=== PATIENT | female | born 1995 | race Two or more races ===

== ENCOUNTER 2021-01-06 11:06 | Emergency (ER) | payer OTHER, SELFPAY ==
--- NOTE | ~2021-01-06 | XR_ITS ---
EXAMINATION: XR CHEST CLINICAL INFORMATION: Chest pain COMPARISON: None TECHNIQUE: 2 views of the chest were obtained. FINDINGS: No significant abnormality is noted involving the heart, lungs, mediastinum, bony thorax or soft tissues. XR/XR chest 2V IMPRESSION: Unremarkable chest examination.
[2021-01-06 11:44] VITALS: BP 118/70; PULSE 80; RESP 18; TEMP 36.9; O2SAT 100
[2021-01-06 12:19] VITALS: BP 118/70; PULSE 80; RESP 18; TEMP 36.9; O2SAT 100; BMI 21.2
--- NOTE | 2021-01-06 12:25 | ED_ITS ---
HPI - General Adult General Chief complaint: General Medical Stated complaint: LUNG AND DENTAL PAIN Time Seen by Provider: 01/06/21 12:25 Source: patient Mode of arrival: ambulatory Limitations: language barrier History of Present Illness HPI narrative: 25 y/o female presenting with 3 days of middle right sided back pain that is worse with deep inspiration and movement from side to side. She denies injury or heavy lifting. She denies fever, chills, cough, SOB, abd pain, N/V/D, urinary symptoms. No COVID-19 exposure or symptoms. She also reports on/off right lower tooth pain for the last 1 month. She broke a tooth a long time ago and has not follow up with her dentist. She denies facial swelling, difficulty swallowing, opening her mouth or eating. She has not taken any medications for the pain. MD complaint: back pain and dental pain Onset (ago): day(s) (3) Location: mouth and back Radiation: non-radiation Severity: mild Severity scale (1-10): 4 Quality: aching and sharp Pain Consistency: intermittent Relieving factors: none Exacerbating factors: movement Associated symptoms: denies other symptoms Treatments prior to arrival: none Related Data Previous Rx's Medication Instructions Recorded cyclobenzaprine 10 mg PO TID PRN #8 tab 01/06/21 ibuprofen 600 mg PO Q8H PRN #20 tab 01/06/21 lidocaine [Lidoderm] 1 patch TOPICAL DAILY #15 ea 01/06/21 Allergies Allergy/AdvReac Type Severity Reaction Status Date / Time No Known Allergies Allergy Verified 01/06/21 12:21 [No Known Allergies*] Review of Systems Review of Systems: Constitutional: No Fever, No Chills ENT/Mouth: No sore throat, No Rhinorrhea, No Swallowing Difficulty, +dental pain Cardiovascular: No Chest Pain, No SOB, No Orthopnea, No Edema Respiratory: No Cough, No Sputum, No Wheezing, No dyspnea Gastrointestinal: No Nausea, No Vomiting, No Diarrhea, No abdominal Pain Genitourinary: No Dysuria, No Urinary Frequency, No Hematuria Musculoskeletal: No joint pain, + Myalgias (right middle back) Skin: No Skin Lesions, No rash Neuro: No Weakness, No Numbness, No Dizziness, No Headache Heme/Lymph: No Bruising PMFSH Past Medical History Attestation statement: The following information was validated with the patient. Medical History No known health problems Social History Social History Advance Directives: Yes Advance Directives Information Provided: Yes Advance Directives on File: No Physical Exam Vital Signs: Vital Signs: Last Vital Signs Temp 98.5 F 01/06/21 12:19 Pulse 80 01/06/21 12:19 Resp 18 01/06/21 12:19 BP 118/70 01/06/21 12:19 Pulse Ox 100 01/06/21 12:19 Body Mass Index 21.2 Appearance: Alert. Oriented X3. No acute distress. HEENT: normal inspection externally, no facial swelling, trachea midline, neck supple without LAD, right posterior molar with large crack and missing piece, no gingival erythema, edema, fluctuance. dental decay noted CVS: Normal heart rate and rhythm. Pulses normal. Respiratory: No respiratory distress. Lungs CTAB, no wheezes or rhonchi. Skin: Skin warm and dry. Normal skin color. Normal skin turgor. No rashes. Back: medial to right scapula there is soft tissue tenderness and palpable musc le spasm. no CVA tenderness Extremities: atraumtaic, no edema Neuro: Oriented X 3. No motor deficit. No sensory deficit. Course Course Course Narrative: 25 y/o female presenting with back pain and dental pain. Back pain likely muscular given exam findings of spasm. No sign/symptoms of COVID-19. Lungs are clear. Will get CXR to r/o PNA & PTX. Dental exam is consistent with broken tooth and decay but no active infection. Will prescribe NSAID for symptomatic relief, she agreed to call her dentist today for further evaluation. Reevaluation(s) Reevaluation #1: CXR negative. Will treat for muscle spasm/pain. Patient has been counseled. Stable for discharge. Critical Care Time Critical Care Time Critical Care Time: No Discharge Plan Discharge Clinical Impression: Acute right-sided thoracic back pain, Toothache Patient Disposition: Home, Self-Care Instructions: Toothache (ED), Back Pain (ED) Additional Instructions: Your x-ray today was normal. It is likely that your back pain is due to muscle spasm. No bending, lifting or twisting. Use ice several times per day for 20 minutes at a time for the next 48 hours and then change to heat. Take medications as prescribed to help with pain and discomfort. Follow up with your Primary Care Doctor this week. Follow up with your dentist as soon as possible. The prescribed medication for your back will help your tooth pain. If your pain worsens, if you develop new numbness, tingling, weakness, loss of function or incontinence call 911 or come back to the ER right away for evaluation. Prescriptions: New ibuprofen 600 mg tablet 600 mg PO Q8H PRN (Reason: pain) Qty: 20 RF: 0 lidocaine [Lidoderm] 5 % adhesive patch,medicated 1 patch topical DAILY Qty: 15 RF: 0 cyclobenzaprine 10 mg tablet 10 mg PO TID PRN (Reason: muscle spasm) Qty: 8 RF: 0
--- NOTE | 2021-01-06 12:31 | ED.GENADULT ---
HPI - General Adult General Chief complaint: General Medical Stated complaint: LUNG AND DENTAL PAIN Time Seen by Provider: 01/06/21 12:25 Source: patient Mode of arrival: ambulatory Limitations: language barrier History of Present Illness HPI narrative: 25 yo female presenting with 3 days of middle right back pain when she takes a deep breath and moves side to side. She denies injury. No heavy lifting recently. She denies SOB, cough, fever, chills, myalgias, N/V/D. No known exposure to COVID-19. Separately patient also reports right lower dental pain ongoing for the last 1 month. She has a broken tooth that has pain on/off. She has not called her dentist for evaluation. She denies facial swelling, difficulty opening her jaw or eating. MD complaint: back pain & dental pain Onset (ago): day(s) (3) Location: mouth and back Radiation: non-radiation Severity: mild Severity scale (1-10): 4 Quality: aching and sharp Pain Consistency: intermittent Relieving factors: none Exacerbating factors: movement Associated symptoms: denies other symptoms Treatments prior to arrival: none Related Data Previous Rx's Medication Instructions Recorded cyclobenzaprine 10 mg PO TID PRN #8 tab 01/06/21 ibuprofen 600 mg PO Q8H PRN #20 tab 01/06/21 lidocaine [Lidoderm] 1 patch TOPICAL DAILY #15 ea 01/06/21 Allergies Allergy/AdvReac Type Severity Reaction Status Date / Time No Known Allergies Allergy Verified 01/06/21 12:21 [No Known Allergies*] Review of Systems Review of Systems: Constitutional: No Fever, No Chills ENT/Mouth: No sore throat, No Rhinorrhea, No Swallowing Difficulty, +dental pain Cardiovascular: No Chest Pain, No SOB, No Orthopnea, No Edema Respiratory: No Cough, No Sputum, No Wheezing, No dyspnea Gastrointestinal: No Nausea, No Vomiting, No Diarrhea, No abdominal Pain Genitourinary: No Dysuria, No Urinary Frequency, No Hematuria Musculoskeletal: No joint pain, + Myalgias (middle right back) Neuro: No Weakness, No Numbness, No Dizziness, No Headache Heme/Lymph: No Bruising PMFSH Past Medical History Attestation statement: The following information was validated with the patient. Medical History No known health problems Social History Social History Advance Directives: Yes Advance Directives Information Provided: Yes Advance Directives on File: No Physical Exam Vital Signs: Vital Signs: Last Vital Signs Temp 98.5 F 01/06/21 12:19 Pulse 80 01/06/21 12:19 Resp 18 01/06/21 12:19 BP 118/70 01/06/21 12:19 Pulse Ox 100 01/06/21 12:19 Body Mass Index 21.2 Appearance: Alert. Oriented X3. No acute distress. HEENT: normal inspection externally, no facial swelling. trachea midline, neck supple. right lower posterior molar is cracked with large piece missing, previous filling exposed. no gingival erythema, edema, bleeding or fluctance. dental decay noted. CVS: Normal heart rate and rhythm. Pulses normal. Respiratory: No respiratory distress. Lungs CTAB, no wheezes or rhonchi. Skin: Skin warm and dry. Normal skin color. Normal skin turgor. No rashes. Back: soft tissue tenderness medial to right scapula with palpable muscle spasm. Extremities: atraumatic, no edema Neuro: Oriented X 3. No motor deficit. No sensory deficit. Course Course Course Narrative: 25 y/o healthy female presenting with back pain and dental pain. Back pain seems to be muscular in nature with exam findings consistent with spasm. No SOB, cough, chest pain. No sign/symptoms of COVID-19. Will get CXR to r/o underlying PNA or PTX. Dental pain is x1 month without signs of abscess. Will give NSAID and brief course of narcotic for severe pain - discussed the importance of following up with her dentist and she agrees to call later today. Discharge Plan Discharge Clinical Impression: Acute right-sided thoracic back pain, Toothache Patient Disposition: Home, Self-Care Instructions: Toothache (ED), Back Pain (ED) Additional Instructions: Your x-ray today was normal. It is likely that your back pain is due to muscle spasm. No bending, lifting or twisting. Use ice several times per day for 20 minutes at a time for the next 48 hours and then change to heat. Take medications as prescribed to help with pain and discomfort. Follow up with your Primary Care Doctor this week. Follow up with your dentist as soon as possible. The prescribed medication for your back will help your tooth pain. If your pain worsens, if you develop new numbness, tingling, weakness, loss of function or incontinence call 911 or come back to the ER right away for evaluation. Prescriptions: New ibuprofen 600 mg tablet 600 mg PO Q8H PRN (Reason: pain) Qty: 20 RF: 0 lidocaine [Lidoderm] 5 % adhesive patch,medicated 1 patch topical DAILY Qty: 15 RF: 0 cyclobenzaprine 10 mg tablet 10 mg PO TID PRN (Reason: muscle spasm) Qty: 8 RF: 0 Interventions: ED Discharge Assessment Last Done: 01/06/21 13:09 Discharge Date/Time: 01/06/21 13:10
== END 2021-01-06 13:10 | disposition home or self-care (01) ==
PROVIDERS: Emergency Provider Emergency Medicine Emergency Medical Services
DX: M54.6 Pain in thoracic spine (principal); K08.89 Other specified disorders of teeth and supporting structures
CPT/HCPCS: 71046; 99283

== ENCOUNTER 2021-03-09 10:23 | Emergency (ER) | payer OTHER, SELFPAY ==
[2021-03-09 10:36] VITALS: BP 102/56; PULSE 83; RESP 18; TEMP 37.1; O2SAT 99; BMI 22.0
[2021-03-09 11:22] LABS: Glucose Urine UA NEG (NEG); Leukocyte Esterase Urine 1+ (NEG); Nitrite Urine NEG (NEG); UACC Culture Trigger YES; Urine Blood TRACE (NEG); Urine Ketones NEG (NEG); Urine Protein 1+ MG/DL (NEG-TRACE)
[2021-03-09 11:24] LABS: Appearance Urine HAZY; Color Urine YELLOW
[2021-03-09 11:35] LABS: Bacteria Urine 1+ /LPF; Mucus Urine 1+ /LPF; RBC Urine 0-2 /HPF (0); Squamous Epithelial Cell Urine TRACE /LPF
--- NOTE | 2021-03-09 11:59 | ED_ITS ---
HPI - General Adult General Chief complaint: Abdominal Pain Stated complaint: abd pain Time Seen by Provider: 03/09/21 11:45 Source: patient and family Mode of arrival: ambulatory Limitations: language barrier History of Present Illness HPI narrative: 25 y/o female with history of tubal ligation 6 years ago presents to the ED with 5 days of dysuria and lower abdominal discomfort. She states she has increased frequency as well. She has a habit of holding her urination at work. She has had a UTI in the past and states this feels similar. She denies vaginal discharge, fever, N/V/D. She had her menses 3 days ago for 2 days and then it stopped. She denies chance of given her tubal ligation history. complaint: dysuria Onset (ago): day(s) (5) Location: abdomen, pelvis and genitals Radiation: non-radiation Severity: moderate Quality: burning Pain Consistency: intermittent Relieving factors: none Exacerbating factors: other (urination) Associated symptoms: denies other symptoms Treatments prior to arrival: none Related Data Previous Rx's Medication Instructions Recorded cyclobenzaprine 10 mg PO TID PRN #8 tab 01/06/21 ibuprofen 600 mg PO Q8H PRN #20 tab 01/06/21 lidocaine [Lidoderm] 1 patch TOPICAL DAILY #15 ea 01/06/21 cefuroxime axetil 250 mg PO BID 7 Days #14 tab 03/09/21 Allergies Allergy/AdvReac Type Severity Reaction Status Date / Time No Known Allergies Allergy Verified 03/09/21 10:36 [No Known Allergies*] Review of Systems Review of Systems: Constitutional: No Fever, No Chills Gastrointestinal: No Nausea, No Vomiting, No Diarrhea, + abdominal Pain Genitourinary: + Dysuria, + Urinary Frequency, No Hematuria Musculoskeletal: No joint pain, No Myalgias Skin: No Skin Lesions, No rash Neuro: No Dizziness, No Headache Heme/Lymph: No Bruising, No Lymphadenopathy Endocrine: No Polyuria, No Polydipsia PMFSH Past Medical History Attestation statement: The following information was validated with the patient. Medical History No known health problems Social History Social History Advance Directives: No Advance Directives Information Provided: No Physical Exam Vital Signs: Vital Signs: Last Vital Signs Temp 98.8 F 03/09/21 10:36 Pulse 83 03/09/21 10:36 Resp 18 03/09/21 10:36 BP 102/56 L 03/09/21 10:36 Pulse Ox 99 03/09/21 10:36 Body Mass Index 22.0 Appearance: Alert. Oriented X3. No acute distress. HEENT: normal external inspection Neck: Normal inspection. Neck supple. CVS: Normal heart rate and rhythm. Pulses normal. Respiratory: No respiratory distress. Breath sounds normal. Abdomen: Soft with mild suprapubic tenderness, no rebound or guarding. +BS x4. No CVA tenderness Skin: Skin warm and dry. Normal skin color. Normal skin turgor. No rashes. Extremities: No lower extremity edema. Neuro: Oriented X 3. No motor deficit. No sensory deficit. Course Course Course Narrative: 25 y/o female presenting with dysuria, freuqency and lower abdominal discomfort. UA is consistent with infection. She is afebrile and nontoxic appearing. Pelvic exam deferred per patient request, no vaginal discharge. She is with no concern for STI. Will treat with Ceftin and have her f/u with her PCP. She is stable for d/c and instructed to come back to the ER if symptoms worsen. Medical Decision Making Lab Data Labs: Lab Results 03/09/21 03/09/21 Range/Units 10:48 10:49 Urine Color YELLOW Urine Appearance HAZY Urine pH 6.0 (5.0-8.0) Ur Specific [place] 1.020 (1.005-1.025) Urine Protein 1+ H (NEG-TRACE) MG/DL Urine Glucose (UA) NEG (NEG) MG/DL Urine Ketones NEG (NEG) MG/DL Urine Blood TRACE (NEG) Urine Nitrite NEG (NEG) Ur Leukocyte Esterase 1+ H (NEG) Urine RBC 0-2 (0) /HPF Urine WBC 10-14 H (0-4) /HPF Ur Squamous Epith Cells TRACE /LPF Urine Bacteria 1+ /LPF Urine Mucus 1+ /LPF Urine Test NEGATIVE (NEGATIVE) Discharge Plan Discharge Clinical Impression: UTI (urinary tract infection) Qualifiers: Urinary tract infection type: acute cystitis Hematuria presence: without hematuria Qualified Code(s): N30.00 - Acute cystitis without hematuria Patient Disposition: Home, Self-Care Instructions: Urinary Tract Infection in Women (ED) Additional Instructions: Your urine test today showed signs of a urinary tract infection. Take the prescribed antibiotics as directed for this. Increase your hydration, drink plenty of water. No sexual intercourse for at least 7 days. Your test was negative. Follow up with your doctor as needed. If you have worsening symptoms come back to the ER for further evaluation. Prescriptions: New cefuroxime axetil 250 mg tablet 250 mg PO BID 7 Days Qty: 14 RF: 0 No Action ibuprofen 600 mg tablet 600 mg PO Q8H PRN (Reason: pain) Qty: 20 RF: 0 lidocaine [Lidoderm] 5 % adhesive patch,medicated 1 patch topical DAILY Qty: 15 RF: 0 cyclobenzaprine 10 mg tablet 10 mg PO TID PRN (Reason: muscle spasm) Qty: 8 RF: 0 Stand Alone Forms: Work/School Release Print Language: Portuguese
[2021-03-09 12:11] LABS: UPreg QC Valid YES; Urine Pregnancy NEGATIVE (NEGATIVE)
== END 2021-03-09 12:39 | disposition home or self-care (01) ==
PROVIDERS: Physician Assistant; Emergency Provider Emergency Medicine Emergency Medical Services
DX: N30.00 Acute cystitis without hematuria (principal)
CPT/HCPCS: 36415; 81001; 81003; 81025; 87086; 87088; 87186; 99283

== ENCOUNTER 2021-11-22 11:32 | Emergency (ER) | payer OTHER, SELFPAY ==
[2021-11-22 15:07] VITALS: BP 119/71; PULSE 96; RESP 18; TEMP 37.6; O2SAT 96
--- NOTE | 2021-11-22 16:03 | ED.GENADULT ---
HPI - General Adult General Chief complaint: Upper Respiratory Symptoms Stated complaint: sore throat fever headache Time Seen by Provider: 11/22/21 15:59 Source: patient and police History of Present Illness HPI narrative: Patient presents to ED for sore throat, headache, body aches, and chills. Patient states no chest pain or shortness of breath. Related Data Previous Rx's Medication Instructions Recorded cyclobenzaprine 10 mg tablet 10 mg PO TID PRN #8 tab 01/06/21 ibuprofen 600 mg tablet 600 mg PO Q8H PRN #20 tab 01/06/21 lidocaine 5 % topical patch 1 patch TOPICAL DAILY #15 ea 01/06/21 (Lidoderm) cefuroxime axetil 250 mg tablet 250 mg PO BID 7 Days #14 tab 03/09/21 Allergies Allergy/AdvReac Type Severity Reaction Status Date / Time No Known Allergies Allergy Verified 03/09/21 10:36 [No Known Allergies*] Review of Systems Review of Systems: Yes all other systems are reviewed and are negative Constitutional: Constitutional: Reports as per HPI, Reports no additional constitutional complaints, Reports body ache(s), Reports fatigue and Reports headache(s) Eyes: Eyes: Reports as per HPI and Reports no additional eye complaints ENT: Reports system reviewed and no additional complaints, except as documented, Reports headache(s) and Reports sore throat Cardiovascular: Cardiovascular: Reports as per HPI and Reports no additional cardiovascular complaints Respiratory: Respiratory: Reports as per HPI and Reports no additional respiratory complaints Gastrointestinal: Gastrointestinal: Reports as per HPI and Reports no additional gastrointestinal complaints Musculoskeletal: Musculoskeletal: Reports no additional musculoskeletal complaints and Reports as per HPI Neurologic: Reports system reviewed and no additional complaints, except as documented, Reports as per HPI and Reports headache(s) Psychiatric: Psychiatric: Reports no additional psychiatric complaints and Reports as per HPI Endocrine: Endocrine: Reports no additional endocrine complaints, Reports as per HPI and Reports fatigue Hematologic/Lymphatic: Hematologic/Lymphatic: Reports no additional hematologic/lymphatic complaints [facility] Past Medical History Medical History No known health problems Social History Social History Advance Directives: No Advance Directives Information Provided: No Patient : No Physical Exam Vital Signs: Vital Signs: Last Vital Signs Temp 98.7 F 11/22/21 16:04 Pulse 88 11/22/21 16:04 Resp 18 11/22/21 16:04 BP 119/71 11/22/21 15:07 Pulse Ox 100 11/22/21 16:04 BMI result Body Mass Index 22.8 Const: General: cooperative, healthy appearing, comfortable, no acute distress, well developed, alert, awake and Physically active Orientation/consciousness: oriented to time and patient oriented x3 HENMT: Head: Yes normal to inspection, Yes No palpable skull fracture present, Yes normocephalic and Yes atraumatic Ears: hearing grossly normal bilaterally and external ears normal Teeth and gingiva: dentition normal and gingiva normal Eyes: General: appearance normal, both eyes and all related structures Neck: Neck: Yes normal visual inspection, Yes full ROM, Yes no lymphadenopathy, Yes no meningeal signs, Yes trachea midline and Yes supple Chest: Chest palpation & inspection: normal inspection of the chest Resp: Effort & Inspection: normal respiratory effort and able to speak in complete sentences Auscultation: clear to auscultation bilaterally Cardio: Jugular venous distension: no JVD Heart sounds: S1 normal heart sound present and S2 normal heart sound present GI: Inspection: Yes normal to inspection and No abdominal wall ecchymosis : General: Yes Bimanual renal exam normal bilaterally, Yes CVA tenderness and Yes no CVA tenderness Back/Spine/Pelvis: Back: no CVA tenderness, CVA tenderness, mass, erythema and warmth Skin: General skin exam: no rashes or lesions noted and elasticity normal Neuro: General: oriented to time, patient oriented x3 and no meningeal signs Cranial nerves: Yes CN's II-XII intact bilaterally Extrem: General: Yes normal to inspection and Yes full ROM Psych: Appearance: grossly normal, well kempt and not disheveled Course Course Course Narrative: Patient tested for Covid and strep Reevaluation(s) Reevaluation #1: COVID and strep test negative Medical Decision Making Lab Data Labs: Lab Results 11/22/21 11/22/21 Range/Units 15:30 16:10 COVID-19 (KANDI) Positive A (Negative) COVID-19 Clin Com See Note S. pyogenes GrpA BELEN Negative (Negative) Discharge Plan Discharge Clinical Impression: COVID-19 Patient Disposition: Home, Self-Care Instructions: COVID-19 (Coronavirus Disease 2019) (ED) Additional Instructions: Peters prueba de COVID result? positiva. Recomendamos 14 d?as de autoaislamiento. Regrese al servicio de urgencias si tiene dolor de pecho, dificultad para respirar, debilidad, mareos o cualquier otro s?ntoma preocupante. Peters proveedor de atenci?n primaria de seguimiento Prescriptions: No Action ibuprofen 600 mg tablet 600 mg PO Q8H PRN (Reason: pain) Qty: 20 RF: 0 lidocaine [Lidoderm] 5 % adhesive patch,medicated 1 patch topical DAILY Qty: 15 RF: 0 cyclobenzaprine 10 mg tablet 10 mg PO TID PRN (Reason: muscle spasm) Qty: 8 RF: 0 cefuroxime axetil 250 mg tablet 250 mg PO BID 7 Days Qty: 14 RF: 0 Stand Alone Forms: Work/School Release Interventions: ED Discharge Assessment Last Done: 11/22/21 17:10 Discharge Date/Time: 11/22/21 17:11 Print Language: Thai
[2021-11-22 16:04] VITALS: PULSE 88; RESP 18; TEMP 37.1; O2SAT 100; BMI 22.8
[2021-11-22 16:07] LABS: COVID-19 Test Positive (Negative); IDNOW Serial# 9DD0AD1C
[2021-11-22 16:32] LABS: IDNOW Serial# 9DD0AD1C; Strep A Nucleic Acid Negative (Negative)
== END 2021-11-22 17:11 | disposition home or self-care (01) ==
PROVIDERS: Emergency Provider Emergency Medicine
DX: U07.1 COVID-19 (principal); R50.9 Fever, unspecified; J02.9 Acute pharyngitis, unspecified
CPT/HCPCS: 36415; 87635; 87651; 99283; 99284

== ENCOUNTER 2022-02-07 19:41 | Emergency (ER) | payer OTHER, MEDICAID, SELFPAY ==
--- NOTE | ~2022-02-07 | CT_ITS ---
EXAMINATION: CT ABDOMEN AND PELVIS WITH CONTRAST CLINICAL INFORMATION: Left and mid abdominal pain. COMPARISON: None TECHNIQUE: Multidetector volumetric images were obtained from the superior aspect of the liver through the pubic symphysis following administration 85 mL of Omnipaque 350 intravenous contrast. Sagittal and coronal reformatted images were obtained on the technologist's workstation. Oral contrast: No This CT examination was performed using dose optimization techniques as appropriate, variously including the following: *Automated exposure control *Adjustment of mA and/or kV according to patient size (this includes techniques or standardized protocols for targeted exams where dose is matched to indication/reason for exam; i.e. extremities or head) *Use of iterative reconstruction technique DLP: 454 mGy-cm FINDINGS: LUNG BASES: The visualized lung bases are unremarkable. LIVER, GALLBLADDER, AND BILIARY TREE: The liver is normal in size, shape, and attenuation. No focal hepatic lesion or biliary ductal dilatation is present. The gallbladder is unremarkable with no evidence of radiopaque gallstones, gallbladder wall thickening, or obvious pericholecystic inflammatory changes. PANCREAS: Unremarkable. SPLEEN: Unremarkable. ADRENAL GLANDS: Unremarkable. KIDNEYS AND URETERS: The kidneys are normal in size, shape, and attenuation. No hydronephrosis, hydroureter, or calculi seen. No perinephric stranding. BLADDER: Unremarkable. GASTROINTESTINAL TRACT: The stomach is unremarkable. Normal caliber small bowel. No obstruction. No colonic wall thickening or inflammation. Appendix not seen. No free air. Small amount of pelvic free fluid. ABDOMINAL WALL: No significant hernia is appreciated. LYMPH NODES: Normal. VASCULAR: Unremarkable. PELVIC VISCERA: The uterus and adnexa are unremarkable. OSSEOUS STRUCTURES: No acute or suspicious osseous abnormality. CT/CT abdomen pelvis w con IMPRESSION: No acute findings of the abdomen or pelvis. Small volume of pelvic free fluid is likely physiologic. Fleischner guidelines were followed.
[2022-02-07 20:10] VITALS: BP 123/63; PULSE 81; RESP 16; TEMP 36.7; O2SAT 99; BMI 24.3
[2022-02-07 21:09] LABS: MANUAL DIFF FLAG NO
[2022-02-07 21:11] LABS: Basophils Percent Auto 0.1 % (0-2); Eosinophils Percent Auto 0.6 % (0-4); Hematocrit 38.5 % (37.0-47.0); Hemoglobin 12.5 g/dl (12.0-16.0); Imm Gran Abs Auto 0.01 X10*3/uL (0.00-0.03); Imm Gran Pct Auto 0.1 % (0.0-0.4); Lymphocytes Absolute Auto 2.4 X10*3/uL (1.2-4.9); Lymphocytes Percent Auto 34.9 % (20-40); Mean Corpuscular HGB Conc 32.5 g/dl (31.0-35.0); Mean Corpuscular Hemoglobin 31.5 pg (27.0-33.0); Mean Platelet Volume 11.4 fL (9.4-12.3); Monocytes Absolute Auto 0.5 X10*3/uL (0.1-1.2); Monocytes Percent Auto 7.5 % (2-11); Neutrophils Absolute Auto 3.9 x10*3/uL (2.0-8.3); Neutrophils Percent Auto 56.8 % (45-73); Platelet Count 173 X10*3/uL (160-400); Red Blood Count 3.97 X10*6/uL (4.20-5.50); Red Cell Distribution Width 13.6 % (11.0-16.0); White Blood Count 6.8 X10*3/uL (4.8-10.8)
[2022-02-07 21:12] LABS: Appearance Urine HAZY; Color Urine YELLOW; Glucose Urine UA NEG (NEG); Leukocyte Esterase Urine NEG (NEG); Nitrite Urine NEG (NEG); Urine Blood NEG (NEG); Urine Ketones NEG (NEG); Urine Protein NEG (NEG-TRACE)
[2022-02-07 21:19] LABS: Amorphous Sediment Urine 3+ /LPF; Mucus Urine 2+ /LPF; RBC Urine 0 /HPF (0); Squamous Epithelial Cell Urine 2+ /LPF; WBC Urine 0 /HPF (0-4)
[2022-02-07 21:20] LABS: Amylase 107 U/L (28-100)
[2022-02-07 21:28] LABS: Anion Gap 14 (12-20); Blood Urea Nitrogen 15 mg/dL (9-16); Calcium 10.3 mg/dL (8.4-10.2); Carbon Dioxide 26 mmol/L (22-29); Chloride 106 mmol/L (96-108); Creatinine Clr Calc Pharmacy 118.3; Estimated Glomerular Filt Rate > 60; Glucose Random 87 mg/dL (60-115); Lipase 32 U/L (8-78); Potassium 4.3 mmol/L (3.3-5.1); Sodium 142 mmol/L (135-145)
[2022-02-07 22:17] VITALS: BP 116/58; PULSE 80; RESP 16; TEMP 37; O2SAT 100
--- NOTE | 2022-02-07 22:45 | ED.GENADULT ---
HPI - General Adult General Chief complaint: General Medical Stated complaint: lower left side abd pain Time Seen by Provider: 02/07/22 22:45 Source: patient Mode of arrival: ambulatory Limitations: no limitations History of Present Illness HPI narrative: Patient with no significant abdominal issues in the past noticed pain mostly mid abdomen and left-sided pain since 08:00 today no nausea no vomiting no diarrhea no urinary complaints no history of kidney stones in the past pain got worse after she had lunch at 15:00 patient is non alcoholic Related Data Previous Rx's Medication Instructions Recorded cyclobenzaprine 10 mg tablet 10 mg PO TID PRN #8 tab 01/06/21 ibuprofen 600 mg tablet 600 mg PO Q8H PRN #20 tab 01/06/21 lidocaine 5 % topical patch 1 patch TOPICAL DAILY #15 ea 01/06/21 (Lidoderm) cefuroxime axetil 250 mg tablet 250 mg PO BID 7 Days #14 tab 03/09/21 Allergies Allergy/AdvReac Type Severity Reaction Status Date / Time No Known Allergies Allergy Verified 03/09/21 10:36 [No Known Allergies*] Review of Systems Review of Systems: Yes all other systems are reviewed and are negative [facility] Past Medical History Medical History No known health problems Social History Social History Advance Directives: No Patient : No Physical Exam ED Vital Signs: Vital Signs - 24 hr 02/07/22 20:10 02/07/22 22:17 02/08/22 00:27 Temperature 98.1 F 98.6 F Pulse Rate 81 80 66 Respiratory Rate 16 16 18 Blood Pressure 123/63 116/58 L 116/74 Pulse Oximetry 99 100 100 BMI result Body Mass Index 24.3 Appearance: Alert. Oriented X3. No acute distress. Eyes: No pallor/ icterus ENT: Pharynx normal. Oral Mucosa moist Neck: Normal inspection. Neck supple. CVS: Normal heart rate and rhythm. Pulses normal. Respiratory: No respiratory distress. Equal air entry bilateral, no wheezing/rales/rhonchi Abdomen: Soft and deep tenderness left upper quadrant no rebound tenderness or guarding Bowel sounds are present, no mass palpable, no CVA tenderness Skin: Skin warm and dry. Normal skin color. Normal skin turgor. Extremities: No lower extremity edema. No calf tenderness Neuro: Oriented X 3. Medical Decision Making MDM Narrative Medical decision making narrative: Patient with nonspecific left-sided abdominal pain with stable labs nontoxic look CT scan negative for any acute pathology will discharge patient home Lab Data Lab results reviewed: Yes I reviewed the patient's lab results. Result diagrams: 02/07/22 21:01 02/07/22 21: Labs: Lab Results 02/07/22 02/07/22 02/07/22 Range/Units 21:01 21: 21:01 WBC 6.8 (4.8-10.8) X10*3/uL RBC 3.97 L (4.20-5.50) X10*6/uL Hgb 12.5 (12.0-16.0) g/dl Hct 38.5 (37.0-47.0) % MCV 97.0 (80.0-98.0) fL MCH 31.5 (27.0-33.0) pg MCHC 32.5 (31.0-35.0) g/dl RDW 13.6 (11.0-16.0) % Plt Count 173 (160-400) X10*3/uL MPV 11.4 (9.4-12.3) fL Immature Gran % (Auto) 0.1 (0.0-0.4) % Neut % (Auto) 56.8 (45-73) % Lymph % (Auto) 34.9 (20-40) % [place] % (Auto) 7.5 (2-11) % Eos % (Auto) 0.6 (0-4) % Baso % (Auto) 0.1 (0-2) % Lymph # (Auto) 2.4 (1.2-4.9) X10*3/uL [place] # (Auto) 0.5 (0.1-1.2) X10*3/uL Eos # (Auto) 0.0 (0.0-0.4) X10*3/uL Baso # (Auto) 0.0 (0.0-0.2) X10*3/uL Abs Immat Gran (auto) 0.01 (0.00-0.03) X10*3/uL Absolute Neuts (auto) 3.9 (2.0-8.3) x10*3/uL Absolute Nucleated RBC 0.000 (0.0-0.012) X10*3/uL Nucleated RBC % (auto) 0.0 (0.0-0.2) /100WBC Sodium 142 (135-145) mmol/L Potassium 4.3 (3.3-5.1) mmol/L Chloride 106 (96-108) mmol/L Carbon Dioxide 26 (22-29) mmol/L Anion Gap 14 (12-20) BUN 15 (9-16) mg/dL Creatinine 0.72 (0.5-1.4) mg/dL Estim Creat Clear Calc 118.3 Estimated GFR > 60 Random Glucose 87 (60-115) mg/dL Calcium 10.3 H (8.4-10.2) mg/dL Amylase 107 H (28-100) U/L Lipase 32 (8-78) U/L Urine Color Urine Appearance Urine pH (5.0-8.0) Ur Specific [place] (1.005-1.025) Urine Protein (NEG-TRACE) MG/DL Urine Glucose (UA) (NEG) MG/DL Urine Ketones (NEG) MG/DL Urine Blood (NEG) Urine Nitrite (NEG) Ur Leukocyte Esterase (NEG) Urine RBC (0) /HPF Urine WBC (0-4) /HPF Ur Squamous Epith Cells /LPF Amorphous Sediment /LPF Urine Bacteria /LPF Urine Mucus /LPF Urine Test (NEGATIVE) 02/07/22 02/07/22 Range/Units 21:01 23:41 WBC (4.8-10.8) X10*3/uL RBC (4.20-5.50) X10*6/uL Hgb (12.0-16.0) g/dl Hct (37.0-47.0) % MCV (80.0-98.0) fL MCH (27.0-33.0) pg MCHC (31.0-35.0) g/dl RDW (11.0-16.0) % Plt Count (160-400) X10*3/uL MPV (9.4-12.3) fL Immature Gran % (Auto) (0.0-0.4) % Neut % (Auto) (45-73) % Lymph % (Auto) (20-40) % [place] % (Auto) (2-11) % Eos % (Auto) (0-4) % Baso % (Auto) (0-2) % Lymph # (Auto) (1.2-4.9) X10*3/uL [place] # (Auto) (0.1-1.2) X10*3/uL Eos # (Auto) (0.0-0.4) X10*3/uL Baso # (Auto) (0.0-0.2) X10*3/uL Abs Immat Gran (auto) (0.00-0.03) X10*3/uL Absolute Neuts (auto) (2.0-8.3) x10*3/uL Absolute Nucleated RBC (0.0-0.012) X10*3/uL Nucleated RBC % (auto) (0.0-0.2) /100WBC Sodium (135-145) mmol/L Potassium (3.3-5.1) mmol/L Chloride (96-108) mmol/L Carbon Dioxide (22-29) mmol/L Anion Gap (12-20) BUN (9-16) mg/dL Creatinine (0.5-1.4) mg/dL Estim Creat Clear Calc Estimated GFR Random Glucose (60-115) mg/dL Calcium (8.4-10.2) mg/dL Amylase (28-100) U/L Lipase (8-78) U/L Urine Color YELLOW Urine Appearance HAZY Urine pH 7.0 (5.0-8.0) Ur Specific [place] 1.010 (1.005-1.025) Urine Protein NEG (NEG-TRACE) MG/DL Urine Glucose (UA) NEG (NEG) MG/DL Urine Ketones NEG (NEG) MG/DL Urine Blood NEG (NEG) Urine Nitrite NEG (NEG) Ur Leukocyte Esterase NEG (NEG) Urine RBC 0 (0) /HPF Urine WBC 0 (0-4) /HPF Ur Squamous Epith Cells 2+ /LPF Amorphous Sediment 3+ /LPF Urine Bacteria NONE /LPF Urine Mucus 2+ /LPF Urine Test NEGATIVE (NEGATIVE) Discharge Plan Discharge Clinical Impression: Abdominal pain Patient Disposition: Home, Self-Care Instructions: Abdominal Pain (ED) Additional Instructions: The CT scan of the abdomen is negative for any acute pathology Take Tylenol for pain as needed follow up with PCP Prescriptions: No Action ibuprofen 600 mg tablet 600 mg PO Q8H PRN (Reason: pain) Qty: 20 0RF lidocaine [Lidoderm] 5 % adhesive patch,medicated 1 patch topical DAILY Qty: 15 0RF Rx Instructions: leave on most painful area for up to 12 hrs cyclobenzaprine 10 mg tablet 10 mg PO TID PRN (Reason: muscle spasm) Qty: 8 0RF cefuroxime axetil 250 mg tablet 250 mg PO BID 7 Days Qty: 14 0RF
[2022-02-07] MEDS: 0.9 % Sodium Chloride 1,000 ML 999 ML IV (23:19)
[2022-02-07] MEDS: Ketorolac Tromethamine 30 MG/ML VIAL IVPUSH (23:21)
[2022-02-07 23:48] LABS: UPreg QC Valid YES; Urine Pregnancy NEGATIVE (NEGATIVE)
[2022-02-08] MEDS: iohexoL 350 MG/ML 100 ML INFUS..BTL 85 ML IV (00:13)
[2022-02-08 00:27] VITALS: BP 116/74; PULSE 66; RESP 18; O2SAT 100
[2022-02-08] MEDS: Dicyclomine HCl 10 MG CAPSULE 20 MG PO (01:08)
== END 2022-02-08 01:13 | disposition home or self-care (01) ==
PROVIDERS: Emergency Provider Internal Medicine
DX: R10.9 Unspecified abdominal pain (principal); Z79.899 Other long term (current) drug therapy
CPT/HCPCS: 36415; 74177; 80048; 81001; 81025; 82150; 83690; 85025; 96361; 96374; 99284; J1885; Q9967

== ENCOUNTER 2022-08-25 11:40 | Emergency (ER) | payer OTHER, MEDICAID, SELFPAY ==
--- NOTE | ~2022-08-25 | XR_ITS ---
EXAMINATION: XR CHEST CLINICAL INFORMATION: Chest pain and cough COMPARISON: Previous chest x-ray December 2020 TECHNIQUE: 2 views of the chest were obtained. FINDINGS: No significant abnormality is noted involving the heart, lungs, mediastinum, bony thorax or soft tissues. XR/XR chest 2V IMPRESSION: Unremarkable examination.
[2022-08-25 11:46] VITALS: BP 101/54; PULSE 79; RESP 18; TEMP 36.9; O2SAT 100; BMI 23.6
--- NOTE | 2022-08-25 12:38 | ED.GENADULT ---
HPI - General Adult General Chief complaint: General Medical Stated complaint: chest pain took medication no voice now Time Seen by Provider: 08/25/22 12:23 Source: patient Mode of arrival: ambulatory Limitations: no limitations History of Present Illness HPI narrative: 27 yo female presents to the ER with her boyfriend for evaluation of sore throat, dry cough associated with chest pains and loss of voice. Her symptoms started yesterday and her boyfriend has similar symptoms. She was up all night coughing and now has chest wall tenderness. She is not bringing up phlegm and has no SOB or HART. She reports bodyaches, chills and generalized malaise. MD complaint: sore throat and cough Onset (ago): day(s) (1) Location: head, face, mouth and chest Radiation: non-radiation Severity: moderate Severity scale (1-10): 5 Quality: aching Pain Consistency: constant Relieving factors: medication Exacerbating factors: eating Associated symptoms: cough, fever/chills, headaches and loss of appetite Treatments prior to arrival: none Related Data Previous Rx's Medication Instructions Recorded cyclobenzaprine 10 mg tablet 10 mg PO TID PRN muscle spasm #8 01/06/21 tabs ibuprofen 600 mg tablet 600 mg PO Q8H PRN pain #20 tabs 01/06/21 lidocaine 5 % topical patch 1 patch topical DAILY #15 ea 01/06/21 (Lidoderm) cefuroxime axetil 250 mg tablet 250 mg PO BID 7 days #14 tabs 03/09/21 hydrocodone-homatropine 5 mg-1.5 5 ml PO Q6H PRN cough #60 mL 08/25/22 mg/5 mL (5 mL) oral syrup (Hycodan) Allergies Allergy/AdvReac Type Severity Reaction Status Date / Time No Known Allergies Allergy Verified 03/09/21 10:36 [No Known Allergies*] Review of Systems Review of Systems: Constitutional: No Fever, + Chills ENT/Mouth: + sore throat, No Rhinorrhea, No Swallowing Difficulty Cardiovascular: No Chest Pain, No SOB Respiratory: + Cough, No Sputum, No Wheezing, No dyspnea Gastrointestinal: No Nausea, No Vomiting, No Diarrhea, No abdominal Pain Genitourinary: No Dysuria, No Urinary Frequency, No Hematuria Musculoskeletal: No joint pain, + Myalgias Skin: No Skin Lesions, No rash Neuro: No Weakness, No Dizziness, +Headache Heme/Lymph: No Bruising, No Lymphadenopathy PMFSH Past Medical History Medical History No known health problems Social History Social History Advance Directives: No Advance Directives Information Provided: No Physical Exam ED Vital Signs: Vital Signs - 24 hr 08/25/22 11:46 Temperature 98.4 F Pulse Rate 79 Respiratory Rate 18 Blood Pressure 101/54 L Pulse Oximetry 100 Oxygen Delivery Method Room Air BMI result Body Mass Index 23.6 Appearance: Alert. Oriented X3. No acute distress. Eyes: Pupils equal, round and reactive to light. ENT: Pharynx with moderate generalized posterior erythema, no tonsillomegaly or exudate. Loss of voice when phonating Neck: Normal inspection. Neck supple. No lymphadenopathy CVS: Normal heart rate and rhythm. Pulses normal. Respiratory: No respiratory distress. Breath sounds normal. Skin: Skin warm and dry. Normal skin color. Normal skin turgor. No rashes. Extremities: No lower extremity edema. No calf tenderness Neuro: Oriented X 3 grossly normal, nonfocal Course Course Course Narrative: 27-year-old female presents to the ER for evaluation of cough, sore throat, chest wall pains and generalized malaise since yesterday. She presents to the boyfriend with similar symptoms. Concern for viral etiology. Will check viral panel and chest x-ray. Vital signs are normal and she appears nontoxic. Reevaluation(s) Reevaluation #1: COVID and flu swabs are negative strep throat swab is negative. Chest x-ray is clear. She is stable for d/c home with rx for anti-tussive and OTC cold/flu medications. patient agrees with plan. stable for d/c. Medical Decision Making Lab Data Labs: Lab Results 08/25/22 08/25/22 08/25/22 Range/Units 12:35 12:35 12:35 COVID-19 (KANDI) Negative (Negative) COVID-19 Clin Com See Note Influenza Type A (BELEN) Negative (Negative) Influenza Type B (BELEN) Negative (Negative) Influenza A & B Note See Note S. pyogenes GrpA BELEN Negative (Negative) Critical Care Time Critical Care Time Critical Care Time: No Discharge Plan Discharge Clinical Impression: Viral illness Patient Disposition: Home, Self-Care Instructions: Viral Syndrome (ED) Additional Instructions: You tested negative for COVID-19, influenza and strep throat. Your x-ray was normal. Your symptoms are most likely due to a viral illness. Treatment is supportive care and treating your symptoms. Take [id number] cold and flu symptoms as needed. Recommend [id number] Chloraseptic spray or Cepacol lozenges as needed for sore throat. Rest and stay hydrated, drink plenty of water. Take the prescribed cough medication as needed. It may make you drowsy soon to not drive after you take it. Follow up with your doctor as needed. If you develop new or worsening symptoms call 911 or come back to the ER for further evaluation. Prescriptions: New hydrocodone-homatropine [Hycodan] 5-1.5 mg/5 mL (5 mL) syrup 5 ml PO Q6H PRN (Reason: cough) Qty: 60 0RF Rx Instructions: Partial Fill upon patient request. No Action ibuprofen 600 mg tablet 600 mg PO Q8H PRN (Reason: pain) Qty: 20 0RF lidocaine [Lidoderm] 5 % adhesive patch,medicated 1 patch topical DAILY Qty: 15 0RF Rx Instructions: leave on most painful area for up to 12 hrs cyclobenzaprine 10 mg tablet 10 mg PO TID PRN (Reason: muscle spasm) Qty: 8 0RF cefuroxime axetil 250 mg tablet 250 mg PO BID 7 Days Qty: 14 0RF Stand Alone Forms: Work/School Release Print Language: Upper Sorbian
[2022-08-25] MEDS: Lidocaine HCl Viscous 2 % 15 ML SOLUTION MUCOUS MEM (12:41)
[2022-08-25] MEDS: Ibuprofen 600 MG TABLET PO (12:42)
[2022-08-25 12:59] LABS: COVID-19 Test Negative (Negative); IDNOW Serial# 16C4AD1C
[2022-08-25 13:00] LABS: IDNOW Serial# 9DB6401D; Influenza A Negative (Negative); Influenza B2 Negative (Negative)
[2022-08-25 13:05] LABS: IDNOW Serial# 08D9AD1C; Strep A Nucleic Acid Negative (Negative)
== END 2022-08-25 14:06 | disposition home or self-care (01) ==
PROVIDERS: Physician Assistant; Emergency Provider Emergency Medicine
DX: B34.9 Viral infection, unspecified (principal); J02.9 Acute pharyngitis, unspecified; R05.9 Cough, unspecified; Z20.822 Contact with and (suspected) exposure to COVID-19
CPT/HCPCS: 71046; 87502; 87635; 87651; 99283

== ENCOUNTER 2022-11-03 14:49 | Emergency (ER) | payer OTHER, SELFPAY ==
--- NOTE | ~2022-11-03 | XR_ITS ---
EXAMINATION: XR CHEST CLINICAL INFORMATION: Chest pain COMPARISON: Chest x-ray on 08/25/2022 TECHNIQUE: Frontal view of the chest was obtained. FINDINGS: No significant abnormality is noted involving the heart, lungs, mediastinum, bony thorax or soft tissues. XR/XR chest 1V IMPRESSION: Unremarkable examination.
--- NOTE | 2022-11-03 14:50 | ED.CHESTPAIN ---
HPI - Chest Pain General Chief Complaint: General Medical <JENNIFFER Cabello - Last Filed: 11/03/22 15:06> Stated Complaint: chest pain up back neck head <JENNIFFER Cabello Last Filed: 11/03/22 15:06> Time Seen by Provider: 11/03/22 16:10 <JENNIFFER Cabello - Last Filed: 11/03/22 15:06> Source: patient <JENNIFFER Schultz Last Filed: 11/03/22 17:48> Mode of arrival: ambulatory <JENNIFFER Schultz Last Filed: 11/03/22 17:48> Limitations: no limitations <JENNIFFER Schultz Last Filed: 11/03/22 17:48> History of Present Illness HPI narrative: 27-year-old female presents to the ER for multiple complaints today. She states a few days ago she started with bilateral lower extremity pains and shortness when she walked. This resolved and then she developed pain in the left side of her neck that radiates down the arm, chest pains, dizziness, headache, dry cough and decreased p.o. intake. She generally feels fatigued and tired. She also reports lower abdominal pain consistent with her prior ovarian pain. She states this has been going on and off for 10 years since she had her 1st baby. She has had irregular menses for the last 3 months, only bleeding for 3 days with brown vaginal discharge during her menstrual cycle. Her last menstrual cycle was at the beginning of this month and it was short. She was due to see her OBGYN 4 days ago but she missed her appointment. She denies any vaginal discharge or concern for STI. She denies any fever or chills. She has decreased p.o. intake but denies any nausea, vomiting or diarrhea. Her chest pains are across her chest wall and come and go, worse with movement and palpation. <JENNIFFER Schultz Last Filed: 11/03/22 17:48> MD complaint: chest pain <JENNIFFER Schultz Last Filed: 11/03/22 17:48> Onset (ago): day(s) <JENNIFFER Schultz Last Filed: 11/03/22 17:48> Timing of current episode: episodic <JENNIFFER Schultz - Last Filed: 11/03/22 17:48> Prior episodes: Yes <JENNIFFER Schultz - Last Filed: 11/03/22 17:48> Onset: during rest <JENNIFFER Schultz - Last Filed: 11/03/22 17:48> Pain location: left chest and right chest <JENNIFFER Shcultz - Last Filed: 11/03/22 17:48> Pain radiation: none <JENNIFFER Schultz - Last Filed: 11/03/22 17:48> Severity: moderate <JENNIFFER Schultz - Last Filed: 11/03/22 17:48> Quality: sharp <JENNIFFER Schultz - Last Filed: 11/03/22 17:48> Relieving factors: nothing <JENNIFFER Schultz - Last Filed: 11/03/22 17:48> Exacerbating factors: palpation and movement <JENNIFFER Schultz - Last Filed: 11/03/22 17:48> Context: recent illness <JENNIFFER Schultz - Last Filed: 11/03/22 17:48> Associated symptoms: cough <JENNIFFER Schultz - Last Filed: 11/03/22 17:48> Treatment prior to arrival: none <JENNIFFER Schultz - Last Filed: 11/03/22 17:48> Risk Factors Coronary artery disease risk factors: none <JENNIFFER Schultz - Last Filed: 11/03/22 17:48> Thoracic aortic dissection risk factors: none <JENNIFFER Schultz - Last Filed: 11/03/22 17:48> Related Data On Oral Contraceptives: No <JENNIFFER Schultz - Last Filed: 11/03/22 17:48> Home Medications: Previous Rx's Medication Instructions Recorded cyclobenzaprine 10 mg tablet 10 mg PO TID PRN muscle spasm #8 01/06/21 tabs ibuprofen 600 mg tablet 600 mg PO Q8H PRN pain #20 tabs 01/06/21 lidocaine 5 % topical patch 1 patch topical DAILY #15 ea 01/06/21 (Lidoderm) cefuroxime axetil 250 mg tablet 250 mg PO BID 7 days #14 tabs 03/09/21 hydrocodone-homatropine 5 mg-1.5 5 ml PO Q6H PRN cough #60 mL 08/25/22 mg/5 mL (5 mL) oral syrup (Hycodan) <JENNIFFER Cabello - Last Filed: 11/03/22 15:06> Allergies/Adverse Reactions: Allergies Allergy/AdvReac Type Severity Reaction Status Date / Time No Known Allergies Allergy Verified 03/09/21 10:36 [No Known Allergies*] <JENNIFFER Cabello - Last Filed: 11/03/22 15:06> Review of Systems Review of Systems: Constitutional: No Fever, No Chills, positive fatigue ENT/Mouth: No sore throat, No Rhinorrhea, No Swallowing Difficulty Eyes: No Eye Pain, No Swelling, No Redness Cardiovascular: + Chest Pain, No SOB, No Orthopnea, No Edema Respiratory: +Cough, No Sputum, No Wheezing, No dyspnea Gastrointestinal: No Nausea, No Vomiting, No Diarrhea, + abdominal Pain, No Hematochezia, No Melena Genitourinary: No Dysuria, No Urinary Frequency, No Hematuria, no vaginal discharge Musculoskeletal: + joint pain, + Myalgias Skin: No Skin Lesions, No rash Neuro: + Weakness, No Numbness, + Dizziness, + Headache Psych: No Anxiety/Panic, No Depression Heme/Lymph: No Bruising, No Lymphadenopathy <JENNIFFER Schultz - Last Filed: 11/03/22 17:48> [facility] Past Medical History Medical History: Medical History No known health problems <JENNIFFER Cabello - Last Filed: 11/03/22 15:06> Social History Social History: Social History Advance Directives: No Advance Directives Information Provided: No <JENNIFFER Cabello Last Filed: 11/03/22 15:06> Physical Exam Vital Signs: Vital Signs: Last Vital Signs Temp 98.4 F 11/03/22 15:02 Pulse 96 11/03/22 15:02 Resp 18 11/03/22 15:02 BP 117/54 L 11/03/22 15:02 Pulse Ox 98 11/03/22 15:02 O2 Del Method 11/03/22 15:02 BMI result Body Mass Index 25.8 <JENNIFFER Cabello - Last Filed: 11/03/22 15:06> Vital Signs: Last Vital Signs Temp 98.4 F 11/03/22 15:02 Pulse 96 11/03/22 15:02 Resp 18 11/03/22 15:02 BP 117/54 L 11/03/22 15:02 Pulse Ox 98 11/03/22 15:02 O2 Del Method 11/03/22 15:02 BMI result Body Mass Index 25.8 <JENNIFFER Schultz - Last Filed: 11/03/22 17:48> Appearance: Alert. Oriented X3. No acute distress. Eyes: Pupils equal, round and reactive to light. EOMI no nystagmus. ENT: Pharynx normal. Neck: Normal inspection. Neck supple. CVS: Normal heart rate and rhythm. Pulses normal. Respiratory: No respiratory distress. Breath sounds normal. Abdomen: Soft with minimal tenderness to deep palpation of the suprapubic area. No right upper quadrant or right lower quadrant tenderness. No rebound or guarding. +BS x4. Pelvic deferred per patient request Skin: Skin warm and dry. Normal skin color. Normal skin turgor. No rashes. Extremities: No lower extremity edema. Normal inspection x4, normal range of motion, no joint swelling. Neuro: Oriented X 3. No motor deficit. No sensory deficit. Nonfocal, steady gait. <JENNIFFER Schultz - Last Filed: 11/03/22 17:48> Course Course Course Narrative: RME 27 year old female no pmhx presents w/ multiple compalaints neck pain, headache, dizziness, swollen feet, fatigue, lower abd pain, ovarian pain, chest pain all symptoms going on intermittently. Whats bothering her most is her ovaries, chest pain, headache. Review of systems is overwhelmingly positive PE- Appears comfortable. NIHSS-0. Ambulating w/ steady gait Plan- basic labs, imaging, urine, hCG <JENNIFFER Cabello - Last Filed: 11/03/22 15:06> Reevaluation(s) Reevaluation #1: 27-year-old female presents to the ER for evaluation of several complaints. Few days ago she started with lower extremity pain which has resolved. She then developed pain in different joints and extremities also including her neck. She reports dizziness, chest pain, lower abdominal pain consistent with her prior ovarian pain. Irregular periods. Denies chance of . Physical exam is benign. Abdomen is soft with minimal tenderness, only in the suprapubic area. Lab workup today is unremarkable. She has no leukocytosis, not anemic. Chemistry is normal. She is not . He urinalysis is negative for infection. She is tolerating p.o.. Her troponin is negative and she has an unremarkable EKG. Her constellation of symptoms may be due to a viral illness. Will plan to hydrate and give a dose of Toradol for her body aches. <JENNIFFER Schultz - Last Filed: 11/03/22 17:48> Reevaluation #2: Patient feeling better after IV fluids and Toradol. She is tolerating p.o.. She is stable for discharge home with outpatient follow-up and supportive care. Patient agrees with plan. All questions were answered. <JENNIFFER Schultz - Last Filed: 11/03/22 17:48> Medications Administered Discontinued Medications Generic Name Dose Route Start Last Admin Trade Name Freq PRN Reason Stop Dose Admin Sodium Chloride 1,000 mls @ 999 mls/hr 11/03/22 16:45 11/03/22 16:43 Ns IVCONT 11/03/22 17:45 999 mls/hr .Q1H1M JAGJIT Administration Ketorolac Tromethamine 30 mg 11/03/22 16:35 11/03/22 16:46 Ketorolac Tromethamine 30 Mg/Ml Vial IVPUSH 11/03/22 16:36 30 mg ONCE ONE Administration <JENNIFFER Cabello - Last Filed: 11/03/22 15:06> Medications Administered Discontinued Medications Generic Name Dose Route Start Last Admin Trade Name Freq PRN Reason Stop Dose Admin Sodium Chloride 1,000 mls @ 999 mls/hr 11/03/22 16:45 11/03/22 16:43 Ns IVCONT 11/03/22 17:45 999 mls/hr .Q1H1M JAGJIT Administration Ketorolac Tromethamine 30 mg 11/03/22 16:35 11/03/22 16:46 Ketorolac Tromethamine 30 Mg/Ml Vial IVPUSH 11/03/22 16:36 30 mg ONCE ONE Administration <JENNIFFER Schultz - Last Filed: 11/03/22 17:48> Medical Decision Making Medical Decision Making Independent interpretation of EKG, rhythm strip, radiology study: Independent interp EKG,rhythm strip, radiology study I performed an independent interpretation of the: EKG My interpretation is normal sinus rhythm, low voltage QRS, ventricular rate 96 beats per minute, normal TX interval, T-wave inversion in V1 only, incomplete right bundle-branch block. <JENNIFFER Schultz - Last Filed: 11/03/22 17:48> Discharge Plan Discharge Clinical Impression: Acute viral syndrome, Irregular menses <JENNIFFER Cabello - Last Filed: 11/03/22 15:06> Patient Disposition: Home, Self-Care <JENNIFFER Cabello Last Filed: 11/03/22 15:06> Instructions: Dysfunctional Uterine Bleeding (ED), Viral Syndrome (ED) <JENNIFFER Cabello - Last Filed: 11/03/22 15:06> Additional Instructions: Your lab workup today was unremarkable. Your urine test was negative for infection and You tested negative for COVID, influenza and RSV. Your symptoms are most likely due to an acute viral illness, treatment is rest and supportive care. Make sure you are drinking plenty of fluids and staying hydrated. Take [id number] cold and flu medications as needed for your symptoms. Take Motrin and Tylenol as needed for headaches and body aches. Recommend following up with your OBGYN for further evaluation of your irregular periods. If you develop new or worsening symptoms call 911 or come back to the ER for further evaluation. Tu an?lisis de laboratorio de kale no tuvo nada especial. Peters prueba de orina fue negativa para infecci?n y embarazo. Adarsh negativo para COVID, influenza y RSV. Lo m?s probable es que sonido s?ntomas se deban a saritha enfermedad viral aguda, el tratamiento consiste en reposo y atenci?n de apoyo. Aseg?rese de beber muchos l?quidos y mantenerse hidratado. [place] medicamentos de venta manuel para el resfriado y la gripe seg?n sea necesario para sonido s?ntomas. [place] Motrin y Tylenol seg?n sea necesario para los deisy de jon y del cuerpo. Recomiende hacer un seguimiento con peters obstetra y ginec?logo para saritha evaluaci?n adicional de sonido per?odos irregulares. Si desarrolla s?ntomas nuevos o que empeoran, llame al 911 o regrese a la [place] de emergencias para saritha evaluaci?n adicional. <JENNIFFER Cabello - Last Filed: 11/03/22 15:06> Prescriptions: No Action ibuprofen 600 mg tablet 600 mg PO Q8H PRN (Reason: pain) Qty: 20 0RF lidocaine [Lidoderm] 5 % adhesive patch,medicated 1 patch topical DAILY Qty: 15 0RF Rx Instructions: leave on most painful area for up to 12 hrs cyclobenzaprine 10 mg tablet 10 mg PO TID PRN (Reason: muscle spasm) Qty: 8 0RF cefuroxime axetil 250 mg tablet 250 mg PO BID 7 Days Qty: 14 0RF hydrocodone-homatropine [Hycodan] 5-1.5 mg/5 mL (5 mL) syrup 5 ml PO Q6H PRN (Reason: cough) Qty: 60 0RF Rx Instructions: Partial Fill upon patient request. <JENNIFFER Cabello - Last Filed: 11/03/22 15:06> Print Language: Latvian <JENNIFFER Cabello Last Filed: 11/03/22 15:06>
--- NOTE | 2022-11-03 14:54 | ECG_ITS ---
Test Reason : CHEST PAIN Blood Pressure : / mmHG Vent. Rate : 096 BPM Atrial Rate : 096 BPM P-R Int : 150 ms QRS Dur : 096 ms QT Int : 342 ms P-R-T Axes : 037 016 036 degrees QTc Int : 432 ms Normal sinus rhythm Low voltage QRS Incomplete right bundle branch block Borderline ECG When compared to the previous EKG of Incomplete right bundle branch block is now Present Referred By: Generic ED Physician Electronically Signed By:AGNSE WATTS MD
[2022-11-03 15:02] VITALS: BP 117/54; PULSE 96; RESP 18; TEMP 36.9; O2SAT 98; BMI 25.8
[2022-11-03 15:31] LABS: MANUAL DIFF FLAG NO
[2022-11-03 15:32] LABS: Basophils Percent Auto 0.2 % (0-2); Eosinophils Percent Auto 0.1 % (0-4); Hematocrit 38.6 % (37.0-47.0); Hemoglobin 12.9 g/dl (12.0-16.0); Imm Gran Abs Auto 0.03 X10*3/uL (0.00-0.03); Imm Gran Pct Auto 0.3 % (0.0-0.4); Lymphocytes Absolute Auto 1.2 X10*3/uL (1.2-4.9); Lymphocytes Percent Auto 10.7 % (20-40); Mean Corpuscular HGB Conc 33.4 g/dl (31.0-35.0); Mean Corpuscular Hemoglobin 31.7 pg (27.0-33.0); Mean Corpuscular Volume 94.8 fL (80.0-98.0); Mean Platelet Volume 11.6 fL (9.4-12.3); Monocytes Absolute Auto 0.7 X10*3/uL (0.1-1.2); Monocytes Percent Auto 6.1 % (2-11); Neutrophils Absolute Auto 8.9 x10*3/uL (2.0-8.3); Neutrophils Percent Auto 82.6 % (45-73); Platelet Count 154 X10*3/uL (160-400); Red Blood Count 4.07 X10*6/uL (4.20-5.50); Red Cell Distribution Width 12.8 % (11.0-16.0); White Blood Count 10.7 X10*3/uL (4.8-10.8)
[2022-11-03 15:57] LABS: Troponin-I High Sensitivity < 3.5 ng/L (<3.5-17.0)
[2022-11-03 15:59] LABS: COVID-19 Test Negative (Negative)
[2022-11-03 16:09] LABS: Influenza A PCR NEGATIVE (Negative); Influenza B PCR NEGATIVE (Negative); Resp Syncy Virus RNA Qual PCR NEGATIVE (Negative); SARS COV2 PCR INHOUSE NEGATIVE (Negative)
[2022-11-03 16:16] LABS: Alanine Aminotransferase 20 U/L (0-31); Albumin Level 4.4 g/dL (3.5-5.0); Alkaline Phosphatase 62 U/L (39-117); Anion Gap 12 (12-20); Aspartate Amino Transferase 21 U/L (5-31); Bilirubin Total 0.8 mg/dL (0.0-1.0); Blood Urea Nitrogen 12 mg/dL (9-16); Calcium 9.3 mg/dL (8.4-10.2); Carbon Dioxide 27 mmol/L (22-29); Chloride 103 mmol/L (96-108); Creatinine Clr Calc Pharmacy 106.7; Estimated Glomerular Filt Rate > 60; Glucose Random 88 mg/dL (60-115); HCG Quantitative < 2 mIU/mL; Lipase 18 U/L (8-78); Potassium 3.8 mmol/L (3.3-5.1); Sodium 138 mmol/L (135-145); Total Protein 7.5 g/dL (6.5-8.0)
[2022-11-03 16:22] LABS: Appearance Urine Clear; Color Urine Yellow; Glucose Urine UA Negative (Negative); Leukocyte Esterase Urine Negative (Negative); Nitrite Urine Negative (Negative); Urine Blood Negative (Negative); Urine Ketones Negative (Negative); Urine Protein Negative (Neg-Trace)
[2022-11-03] MEDS: 0.9 % Sodium Chloride 1,000 ML 999 ML IVCONT (16:43)
[2022-11-03] MEDS: Ketorolac Tromethamine 30 MG/ML VIAL IVPUSH (16:46)
== END 2022-11-03 18:01 | disposition home or self-care (01) ==
PROVIDERS: Physician Assistant; Emergency Provider Emergency Medicine Emergency Medical Services
DX: B34.9 Viral infection, unspecified (principal); N92.6 Irregular menstruation, unspecified; Z20.822 Contact with and (suspected) exposure to COVID-19
CPT/HCPCS: 0241U; 36415; 71045; 80053; 81003; 83690; 83735; 84484; 84702; 85025; 87635; 93005; 96374; 99284; J1885

== ENCOUNTER 2023-04-09 11:03 | Emergency (ER) | payer MEDICAID, SELFPAY ==
[2023-04-09 11:33] VITALS: BP 97/59; PULSE 65; RESP 18; TEMP 36.3; O2SAT 99; BMI 25.1
--- NOTE | 2023-04-09 11:35 | ED.ABDPAIN ---
HPI - Abdominal Pain General Chief Complaint: Abdominal Pain <Lilian Ramos NP - Last Filed: 04/09/23 11:36> Stated Complaint: L Side Pain <Lilian Ramos NP - Last Filed: 04/09/23 11:36> Time Seen by Provider: 04/09/23 12:35 <Lilian Ramos NP - Last Filed: 04/09/23 11:36> Source: patient and dba manager <Erica Pagan MD - Last Filed: 04/09/23 14:50> Mode of arrival: ambulatory <Erica Pagan MD - Last Filed: 04/09/23 14:50> History of Present Illness HPI narrative: 28-year-old female who reports left lower abdominal/pelvic pain and denies any history of kidney stones, fevers, chills, dysuria, vaginal discharge. LMP-5/5 and also denies any nausea or vomiting. <Erica Pagan MD - Last Filed: 04/09/23 14:50> Related Data Home Medications: Previous Rx's Medication Instructions Recorded cyclobenzaprine 10 mg tablet 10 mg PO TID PRN muscle spasm #8 01/06/21 tabs ibuprofen 600 mg tablet 600 mg PO Q8H PRN pain #20 tabs 01/06/21 lidocaine 5 % topical patch 1 patch topical DAILY #15 ea 01/06/21 (Lidoderm) cefuroxime axetil 250 mg tablet 250 mg PO BID 7 days #14 tabs 03/09/21 hydrocodone-homatropine 5 mg-1.5 5 ml PO Q6H PRN cough #60 mL 08/25/22 mg/5 mL (5 mL) oral syrup (Hycodan) <Lilian Ramos NP - Last Filed: 04/09/23 11:36> Allergies/Adverse Reactions: Allergies Allergy/AdvReac Type Severity Reaction Status Date / Time No Known Allergies Allergy Verified 04/09/23 11:40 [No Known Allergies*] <Lilian Ramos NP - Last Filed: 04/09/23 11:36> Review of Systems Review of Systems Pertinent positives and negatives as stated in HPI <Erica Pagan MD - Last Filed: 04/09/23 14:50> PMFSH Past Medical History Source: nursing notes reviewed <Erica Pagan MD - Last Filed: 04/09/23 14:50> Medical History: Medical History No known health problems <Lilian Ramos NP - Last Filed: 04/09/23 11:36> Social History Social History: Social History Advance Directives: No Advance Directives Information Provided: Yes <Lilian Ramos NP - Last Filed: 04/09/23 11:36> Physical Exam ED Vital Signs: Vital Signs - 24 hr 04/09/23 11:33 04/09/23 12:08 04/09/23 14:00 Temperature 97.4 F 98.7 F 98.3 F Pulse Rate 65 79 83 Respiratory Rate 18 12 12 Blood Pressure 97/59 L 104/51 L 110/46 L Pulse Oximetry 99 99 100 Oxygen Delivery Method Room Air Room Air Room Air BMI result Body Mass Index 25.1 <Lilian Ramos NP - Last Filed: 04/09/23 11:36> Vital Signs - 24 hr 04/09/23 11:33 04/09/23 12:08 04/09/23 14:00 Temperature 97.4 F 98.7 F 98.3 F Pulse Rate 65 79 83 Respiratory Rate 18 12 12 Blood Pressure 97/59 L 104/51 L 110/46 L Pulse Oximetry 99 99 100 Oxygen Delivery Method Room Air Room Air Room Air BMI result Body Mass Index 25.1 VITAL SIGNS: Reviewed. GENERAL: Well developed, well nourished, in no acute distress. HEAD: Normocephalic/atraumatic EYES: PERRLA, EOMI EARS: Ext canals without abnormality LUNGS: Normal breath sounds. No adventitious sounds or accessory muscle use. SpO2<100> CARDIOVASCULAR: Regular rate and rhythm without noted murmurs ABDOMEN: Soft, non-tender, non-distended with bowel sounds. MUSCULOSKELETAL: No tenderness, deformities, or effusions noted on gross inspection. EXTREMITIES: No cyanosis, clubbing or edema. SKIN: Inspection of the skin reveals no rashes NEUROLOGIC: Alert and oriented x 4. Strength and sensation to light touch were grossly intact x 4. <Erica Pagan MD - Last Filed: 04/09/23 14:50> Course Course Course Narrative: This is a rapid medical exam. Deferred additional HPI, ROS, PE to primary provider. 28 yo female healthy here with left sided abdominal pain with radiation to flank x 3 days LMP 03/29 WIll obtain labs, UA, ur preg. VSS <Lilian Ramos NP - Last Filed: 04/09/23 11:36> Medical Decision Making Medical Decision Making MDM Narrative: 28-year-old female with history and clinical presentation after review of all investigations most suggestive of Mittelschmerz, there is no history or clinical findings to suggest infectious etiology, evidence to suggest renal colic, ectopic. Patient received combination analgesics and is otherwise discharged home with further medication instructions in encouraged to follow-up with primary care provider. <Erica Pagan MD - Last Filed: 04/09/23 14:50> Differential Diagnosis Please see the discussion above <Erica Pagan MD - Last Filed: 04/09/23 14:50> Lab Data Please see the discussion above <Erica Pagan MD - Last Filed: 04/09/23 14:50> Result Diagrams: 04/09/23 11:44 04/09/23 11:44 <Lilian Ramos NP - Last Filed: 04/09/23 11:36> Labs: Lab Results 04/09/23 04/09/23 04/09/23 Range/Units 11:11 11:44 11:44 WBC 5.7 (4.8-10.8) X10*3/uL RBC 3.90 L (4.20-5.50) X10*6/uL Hgb 12.6 (12.0-16.0) g/dl Hct 36.9 L (37.0-47.0) % MCV 94.6 (80.0-98.0) fL MCH 32.3 (27.0-33.0) pg MCHC 34.1 (31.0-35.0) g/dl RDW 13.1 (11.0-16.0) % Plt Count 151 L (160-400) X10*3/uL MPV 12.1 (9.4-12.3) fL Immature Gran % (Auto) 0.2 (0.0-0.4) % Neut % (Auto) 56.0 (45-73) % Lymph % (Auto) 35.4 (20-40) % [place] % (Auto) 7.4 (2-11) % Eos % (Auto) 0.5 (0-4) % Baso % (Auto) 0.5 (0-2) % Lymph # (Auto) 2.0 (1.2-4.9) X10*3/uL [place] # (Auto) 0.4 (0.1-1.2) X10*3/uL Eos # (Auto) 0.0 (0.0-0.4) X10*3/uL Baso # (Auto) 0.0 (0.0-0.2) X10*3/uL Abs Immat Gran (auto) 0.01 (0.00-0.03) X10*3/uL Absolute Neuts (auto) 3.2 (2.0-8.3) x10*3/uL Absolute Nucleated RBC 0.000 (0.0-0.012) X10*3/uL Nucleated RBC % (auto) 0.0 (0.0-0.2) /100WBC Sodium 139 (135-145) mmol/L Potassium 4.2 (3.3-5.1) mmol/L Chloride 104 (96-108) mmol/L Carbon Dioxide 30 H (22-29) mmol/L Anion Gap 9 L (12-20) BUN 12 (9-16) mg/dL Creatinine 0.71 (0.5-1.4) mg/dL Estim Creat Clear Calc 117.9 Estimated GFR > 60 Random Glucose 86 (60-115) mg/dL Calcium 9.4 (8.4-10.2) mg/dL Total Bilirubin 0.8 (0.0-1.0) mg/dL Direct Bilirubin 0.2 (0.0-0.5) mg/dL AST 17 (5-31) U/L ALT 11 (0-31) U/L Alkaline Phosphatase 56 (39-117) U/L Total Protein 7.2 (6.5-8.0) g/dL Albumin 4.2 (3.5-5.0) g/dL Lipase 15 (8-78) U/L Urine Color Urine Appearance Urine pH (5.0-9.0) Ur Specific [place] (1.005-1.025) Urine Protein (Neg-Trace) mg/dL Urine Glucose (UA) (Negative) mg/dL Urine Ketones (Negative) mg/dL Urine Blood (Negative) Urine Nitrite (Negative) Ur Leukocyte Esterase (Negative) Urine Test NEGATIVE (NEGATIVE) 04/09/23 Range/Units 12:32 WBC (4.8-10.8) X10*3/uL RBC (4.20-5.50) X10*6/uL Hgb (12.0-16.0) g/dl Hct (37.0-47.0) % MCV (80.0-98.0) fL MCH (27.0-33.0) pg MCHC (31.0-35.0) g/dl RDW (11.0-16.0) % Plt Count (160-400) X10*3/uL MPV (9.4-12.3) fL Immature Gran % (Auto) (0.0-0.4) % Neut % (Auto) (45-73) % Lymph % (Auto) (20-40) % [place] % (Auto) (2-11) % Eos % (Auto) (0-4) % Baso % (Auto) (0-2) % Lymph # (Auto) (1.2-4.9) X10*3/uL [place] # (Auto) (0.1-1.2) X10*3/uL Eos # (Auto) (0.0-0.4) X10*3/uL Baso # (Auto) (0.0-0.2) X10*3/uL Abs Immat Gran (auto) (0.00-0.03) X10*3/uL Absolute Neuts (auto) (2.0-8.3) x10*3/uL Absolute Nucleated RBC (0.0-0.012) X10*3/uL Nucleated RBC % (auto) (0.0-0.2) /100WBC Sodium (135-145) mmol/L Potassium (3.3-5.1) mmol/L Chloride (96-108) mmol/L Carbon Dioxide (22-29) mmol/L Anion Gap (12-20) BUN (9-16) mg/dL Creatinine (0.5-1.4) mg/dL Estim Creat Clear Calc Estimated GFR Random Glucose (60-115) mg/dL Calcium (8.4-10.2) mg/dL Total Bilirubin (0.0-1.0) mg/dL Direct Bilirubin (0.0-0.5) mg/dL AST (5-31) U/L ALT (0-31) U/L Alkaline Phosphatase (39-117) U/L Total Protein (6.5-8.0) g/dL Albumin (3.5-5.0) g/dL Lipase (8-78) U/L Urine Color Yellow Urine Appearance Clear Urine pH 8.5 (5.0-9.0) Ur Specific [place] 1.020 (1.005-1.025) Urine Protein Negative (Neg-Trace) mg/dL Urine Glucose (UA) Negative (Negative) mg/dL Urine Ketones Negative (Negative) mg/dL Urine Blood Negative (Negative) Urine Nitrite Negative (Negative) Ur Leukocyte Esterase Negative (Negative) Urine Test (NEGATIVE) <Lilian Ramos, GYM INSTRUCTOR - Last Filed: 04/09/23 11:36> Lab Results 04/09/23 04/09/23 04/09/23 Range/Units 11:11 11:44 11:44 WBC 5.7 (4.8-10.8) X10*3/uL RBC 3.90 L (4.20-5.50) X10*6/uL Hgb 12.6 (12.0-16.0) g/dl Hct 36.9 L (37.0-47.0) % MCV 94.6 (80.0-98.0) fL MCH 32.3 (27.0-33.0) pg MCHC 34.1 (31.0-35.0) g/dl RDW 13.1 (11.0-16.0) % Plt Count 151 L (160-400) X10*3/uL MPV 12.1 (9.4-12.3) fL Immature Gran % (Auto) 0.2 (0.0-0.4) % Neut % (Auto) 56.0 (45-73) % Lymph % (Auto) 35.4 (20-40) % [place] % (Auto) 7.4 (2-11) % Eos % (Auto) 0.5 (0-4) % Baso % (Auto) 0.5 (0-2) % Lymph # (Auto) 2.0 (1.2-4.9) X10*3/uL [place] # (Auto) 0.4 (0.1-1.2) X10*3/uL Eos # (Auto) 0.0 (0.0-0.4) X10*3/uL Baso # (Auto) 0.0 (0.0-0.2) X10*3/uL Abs Immat Gran (auto) 0.01 (0.00-0.03) X10*3/uL Absolute Neuts (auto) 3.2 (2.0-8.3) x10*3/uL Absolute Nucleated RBC 0.000 (0.0-0.012) X10*3/uL Nucleated RBC % (auto) 0.0 (0.0-0.2) /100WBC Sodium 139 (135-145) mmol/L Potassium 4.2 (3.3-5.1) mmol/L Chloride 104 (96-108) mmol/L Carbon Dioxide 30 H (22-29) mmol/L Anion Gap 9 L (12-20) BUN 12 (9-16) mg/dL Creatinine 0.71 (0.5-1.4) mg/dL Estim Creat Clear Calc 117.9 Estimated GFR > 60 Random Glucose 86 (60-115) mg/dL Calcium 9.4 (8.4-10.2) mg/dL Total Bilirubin 0.8 (0.0-1.0) mg/dL Direct Bilirubin 0.2 (0.0-0.5) mg/dL AST 17 (5-31) U/L ALT 11 (0-31) U/L Alkaline Phosphatase 56 (39-117) U/L Total Protein 7.2 (6.5-8.0) g/dL Albumin 4.2 (3.5-5.0) g/dL Lipase 15 (8-78) U/L Urine Color Urine Appearance Urine pH (5.0-9.0) Ur Specific [place] (1.005-1.025) Urine Protein (Neg-Trace) mg/dL Urine Glucose (UA) (Negative) mg/dL Urine Ketones (Negative) mg/dL Urine Blood (Negative) Urine Nitrite (Negative) Ur Leukocyte Esterase (Negative) Urine Test NEGATIVE (NEGATIVE) 04/09/23 Range/Units 12:32 WBC (4.8-10.8) X10*3/uL RBC (4.20-5.50) X10*6/uL Hgb (12.0-16.0) g/dl Hct (37.0-47.0) % MCV (80.0-98.0) fL MCH (27.0-33.0) pg MCHC (31.0-35.0) g/dl RDW (11.0-16.0) % Plt Count (160-400) X10*3/uL MPV (9.4-12.3) fL Immature Gran % (Auto) (0.0-0.4) % Neut % (Auto) (45-73) % Lymph % (Auto) (20-40) % [place] % (Auto) (2-11) % Eos % (Auto) (0-4) % Baso % (Auto) (0-2) % Lymph # (Auto) (1.2-4.9) X10*3/uL [place] # (Auto) (0.1-1.2) X10*3/uL Eos # (Auto) (0.0-0.4) X10*3/uL Baso # (Auto) (0.0-0.2) X10*3/uL Abs Immat Gran (auto) (0.00-0.03) X10*3/uL Absolute Neuts (auto) (2.0-8.3) x10*3/uL Absolute Nucleated RBC (0.0-0.012) X10*3/uL Nucleated RBC % (auto) (0.0-0.2) /100WBC Sodium (135-145) mmol/L Potassium (3.3-5.1) mmol/L Chloride (96-108) mmol/L Carbon Dioxide (22-29) mmol/L Anion Gap (12-20) BUN (9-16) mg/dL Creatinine (0.5-1.4) mg/dL Estim Creat Clear Calc Estimated GFR Random Glucose (60-115) mg/dL Calcium (8.4-10.2) mg/dL Total Bilirubin (0.0-1.0) mg/dL Direct Bilirubin (0.0-0.5) mg/dL AST (5-31) U/L ALT (0-31) U/L Alkaline Phosphatase (39-117) U/L Total Protein (6.5-8.0) g/dL Albumin (3.5-5.0) g/dL Lipase (8-78) U/L Urine Color Yellow Urine Appearance Clear Urine pH 8.5 (5.0-9.0) Ur Specific [place] 1.020 (1.005-1.025) Urine Protein Negative (Neg-Trace) mg/dL Urine Glucose (UA) Negative (Negative) mg/dL Urine Ketones Negative (Negative) mg/dL Urine Blood Negative (Negative) Urine Nitrite Negative (Negative) Ur Leukocyte Esterase Negative (Negative) Urine Test (NEGATIVE) <Erica Pagan MD - Last Filed: 04/09/23 14:50> External Record Review External record reviewed: Prior outpatient labs <Erica Pagan MD - Last Filed: 04/09/23 14:50> Discharge Plan Discharge Clinical Impression: Abdominal discomfort <Lilian Ramos NP - Last Filed: 04/09/23 11:36> Patient Disposition: Home, Self-Care <Lilian Ramos NP - Last Filed: 04/09/23 11:36> Instructions: Abdominal Pain (ED) <Lilian Ramos NP - Last Filed: 04/09/23 11:36> Additional Instructions: 1. Reanudar todos los medicamentos caseros seg?n lo prescrito. 2. Tylenol 1000 mg, por v?a oral, cada 6 horas seg?n sea necesario para controlar el dolor. No exceda los 4000 mg dentro de las 24 horas. 3. Ibuprofeno 400 mg, por v?a oral con leche o comida, cada 6 horas seg?n sea necesario para controlar el dolor. T?arnett con Tylenol para mejorar el alivio de los s?ntomas. 4. Considere la posibilidad de saritha almohadilla t?rmica para un alivio adicional de los s?ntomas. 5. Ana Maria un seguimiento con small proveedor de atenci?n primaria en los pr?ximos 1 a 2 d?as para saritha reevaluaci?n. Regrese a la cuba de emergencias si los s?ntomas empeoran. 1. Resume all home medications as prescribed. 2. Tylenol 1000 mg, orally, every 6 hours as needed for pain control. Do not exceed 4000 mg within 24 hours. 3. Ibuprofen 400 mg, orally with milk or food, every 6 hours as needed for pain control. Please take this with Tylenol for improved symptom relief. 4. Consider heating pad for additional symptom relief. 5. Follow-up with your primary care provider in the next 1-2 days for re-evaluation. Return to the ER for any worsening symptoms. <Lilian Ramos NP - Last Filed: 04/09/23 11:36> Prescriptions: No Action ibuprofen 600 mg tablet 600 mg PO Q8H PRN (Reason: pain) Qty: 20 0RF lidocaine [Lidoderm] 5 % adhesive patch,medicated 1 patch topical DAILY Qty: 15 0RF Rx Instructions: leave on most painful area for up to 12 hrs cyclobenzaprine 10 mg tablet 10 mg PO TID PRN (Reason: muscle spasm) Qty: 8 0RF cefuroxime axetil 250 mg tablet 250 mg PO BID 7 Days Qty: 14 0RF hydrocodone-homatropine [Hycodan] 5-1.5 mg/5 mL (5 mL) syrup 5 ml PO Q6H PRN (Reason: cough) Qty: 60 0RF Rx Instructions: Partial Fill upon patient request. <Lilian Ramos NP - Last Filed: 04/09/23 11:36> Print Language: Trinidadian <Lilian Ramos NP - Last Filed: 04/09/23 11:36>
[2023-04-09 11:50] LABS: MANUAL DIFF FLAG NO
[2023-04-09 11:52] LABS: Basophils Percent Auto 0.5 % (0-2); Eosinophils Percent Auto 0.5 % (0-4); Hematocrit 36.9 % (37.0-47.0); Hemoglobin 12.6 g/dl (12.0-16.0); Imm Gran Abs Auto 0.01 X10*3/uL (0.00-0.03); Imm Gran Pct Auto 0.2 % (0.0-0.4); Lymphocytes Percent Auto 35.4 % (20-40); Mean Corpuscular HGB Conc 34.1 g/dl (31.0-35.0); Mean Corpuscular Hemoglobin 32.3 pg (27.0-33.0); Mean Corpuscular Volume 94.6 fL (80.0-98.0); Mean Platelet Volume 12.1 fL (9.4-12.3); Monocytes Absolute Auto 0.4 X10*3/uL (0.1-1.2); Monocytes Percent Auto 7.4 % (2-11); Neutrophils Absolute Auto 3.2 x10*3/uL (2.0-8.3); Platelet Count 151 X10*3/uL (160-400); Red Cell Distribution Width 13.1 % (11.0-16.0); White Blood Count 5.7 X10*3/uL (4.8-10.8)
[2023-04-09 12:08] VITALS: BP 104/51; PULSE 79; RESP 12; TEMP 37.1; O2SAT 99
[2023-04-09 12:09] LABS: Alanine Aminotransferase 11 U/L (0-31); Albumin Level 4.2 g/dL (3.5-5.0); Alkaline Phosphatase 56 U/L (39-117); Anion Gap 9 (12-20); Aspartate Amino Transferase 17 U/L (5-31); Bilirubin Direct 0.2 mg/dL (0.0-0.5); Bilirubin Total 0.8 mg/dL (0.0-1.0); Blood Urea Nitrogen 12 mg/dL (9-16); Calcium 9.4 mg/dL (8.4-10.2); Carbon Dioxide 30 mmol/L (22-29); Chloride 104 mmol/L (96-108); Creatinine Clr Calc Pharmacy 117.9; Estimated Glomerular Filt Rate > 60; Glucose Random 86 mg/dL (60-115); Lipase 15 U/L (8-78); Potassium 4.2 mmol/L (3.3-5.1); Sodium 139 mmol/L (135-145); Total Protein 7.2 g/dL (6.5-8.0)
[2023-04-09 12:49] LABS: UPreg QC Valid YES; Urine Pregnancy NEGATIVE (NEGATIVE)
[2023-04-09 12:49] LABS: Appearance Urine Clear; Color Urine Yellow; Glucose Urine UA Negative (Negative); Leukocyte Esterase Urine Negative (Negative); Nitrite Urine Negative (Negative); PH 8.5 (5.0-9.0); Urine Blood Negative (Negative); Urine Ketones Negative (Negative); Urine Protein Negative (Neg-Trace)
[2023-04-09 14:00] VITALS: BP 110/46; PULSE 83; RESP 12; TEMP 36.8; O2SAT 100
[2023-04-09] MEDS: Acetaminophen 325 MG TABLET 975 MG PO (14:50)
[2023-04-09] MEDS: Ibuprofen 400 MG TABLET PO (14:51)
== END 2023-04-09 14:57 | disposition home or self-care (01) ==
PROVIDERS: Nurse Practitioner Family; Emergency Provider Student in an Organized Health Care Education/Training Program
DX: R10.32 Left lower quadrant pain (principal); Z79.899 Other long term (current) drug therapy
CPT/HCPCS: 36415; 80048; 80076; 81003; 81025; 83690; 85025; 99283; 99284

== ENCOUNTER 2023-10-12 13:02 | Emergency (ER) | payer OTHER, SELFPAY ==
--- NOTE | 2023-10-12 13:23 | ED.ALLEREA ---
HPI - Allergic Reaction General Chief complaint: Allergic Reaction Stated complaint: Allergic reaction Time Seen by Provider: 10/12/23 13:59 Source: patient, family (daughter) and billing department supervisor Mode of arrival: ambulatory Limitations: no limitations History of Present Illness HPI narrative: 28 year old [place]an speaking female with no significant pmhx presents to the ED today for evaluation of diffuse facial swelling upon waking up this morning. Swelling is isolated to the facial region. Has not noticed any rashes. Did not take anything for this prior to arrival. Denies ever having these symptoms before. Admits to getting a new cat 2 weeks ago and has not had a reaction like this until this morning. Her daughter at bedside who lives in the same home denies similar symptoms. Denies new detergents, soaps, or lotions. Denies new medications or DAVID/ARB. Denies recent insect or tick bites. Denies new foods. Denies fever, dizziness, [place], vision changes, rash, sore throat or difficulty swallowing, chest pain, palpitations, difficulty breathing, shortness of breath, N/V, or abdominal pain. Related Data Previous Rx's Medication Instructions Recorded cyclobenzaprine 10 mg tablet 10 mg PO TID PRN muscle spasm #8 01/06/21 tabs ibuprofen 600 mg tablet 600 mg PO Q8H PRN pain #20 tabs 01/06/21 lidocaine 5 % topical patch 1 patch topical DAILY #15 ea 01/06/21 (Lidoderm) cefuroxime axetil 250 mg tablet 250 mg PO BID 7 days #14 tabs 03/09/21 hydrocodone-homatropine 5 mg-1.5 5 ml PO Q6H PRN cough #60 mL 08/25/22 mg/5 mL (5 mL) oral syrup (Hycodan) Allergies Allergy/AdvReac Type Severity Reaction Status Date / Time No Known Allergies Allergy Verified 10/13/23 10:17 [No Known Allergies*] Review of Systems Review of Systems: Constitutional: No fever, chills, fatigue, night sweats, weight changes ENT/Mouth: No ear pain, hearing loss, nasal congestion, sinus pain, rhinorrhea, sore throat, +facial swelling Eyes: No eye pain, swelling, redness, vision changes, discharge Cardio: No chest pain, palpitations, HART, orthopnea, peripheral edema Pulm: No SOB, cough, sputum, wheezing, dyspnea, hemoptysis GI: No nausea, vomiting, hematemesis, abdominal pain, diarrhea, constipation, hematochezia, melena : No irregular bleeding, dysuria, frequency, urgency, hesitancy, hematuria, flank pain MSK: No back pain, neck pain, joint pain, myalgias Skin: No lesions, rashes Neuro: No weakness, numbness, paresthesias, LOC, dizziness, headache All other systems reviewed and are negative. [facility] Past Medical History Attestation statement: The following information was validated with the patient. Source: old records reviewed and nursing notes reviewed Medical History No known health problems Physical Exam ED Vital Signs: Vital Signs - 24 hr 10/12/23 13:24 Temperature 98.1 F Pulse Rate 73 Respiratory Rate 18 Blood Pressure 113/70 Pulse Oximetry 97 Oxygen Delivery Method Room Air BMI result Body Mass Index 21.2 Vital signs stable Const General: cooperative, healthy appearing, comfortable, no acute distress, alert and awake Orientation/consciousness: patient oriented x3 Limitations: no limitations HENMT Other: + Face is without edema or erythema, nontender to palpation, no palpable fluctuance. Lips and tongue are normal. [place] is patent. + Posteriororopharynx without edema or erythema. No tonsillar edema or exudates. Uvula is midline. Controlling secretions and speaking in complete sentences. Head: Yes normal to inspection, Yes normocephalic and Yes atraumatic Ears: hearing grossly normal bilaterally General nose exam: Normal external nose present and Normal nasal mucous membranes and turbinates present Face and sinus: Yes normal facial exam Eyes General: appearance normal, both eyes and all related structures Visual Vasquez: normal visual vasquez by confrontation Periorbital: periorbital findings normal Conjunctivae: conjunctivae normal Sclerae: sclerae normal Pupils: Equal, round and reactive pupils present EOM: EOMs intact bilaterally Neck Neck: Yes normal visual inspection and Yes no lymphadenopathy Resp Effort & Inspection: normal respiratory effort and able to speak in complete sentences Auscultation: clear to auscultation bilaterally and no wheezes Cardio Rate: regular rate Rhythm: regular rhythm Peripheral pulses: radial pulses present GI Inspection: Yes normal to inspection Palpation (GI): Soft to palpation and nontender Skin Other: + No rash noted to body including webbed spaces, palms/soles, and mucous membranes. General skin exam: no rashes or lesions noted Neuro General: patient oriented x3, gait normal and moves all extremities Cranial nerves: Yes Equal, round and reactive pupils present Extrem General: Yes normal to inspection Course Course Course Narrative: This is an RME: Additional HPI, ROS, PE not included below will be deferred to primary provider. This is a [id number] speaking female presenting to the ER with complaints of ?allergic reaction since last night. Pt reports that her face is feeling swollen. She states that she has a slightly sore throat. She recently got a cat 2 weeks ago. Reporting diffuse body itchiness. Lung CTAB, airway widely patent. No rash seen Plan: ?benadryl +/- solumedrol Reevaluation(s) Reevaluation #1: On re-evaluation of patient, she tells me she's feeling much better after Benadryl administration. States her face no longer feels itchy or swollen. On my examination I do not appreciate any facial edema. Airway is patent. Lungs are CTA b/l. There is no rash. Oropharynx is wnl. She is speaking in complete sentences and controlling secretions. Exam is essentially unremarkable. She is telling me that she would like to go home. I believe patient may have had a minor allergic reaction > cause unknown. I advised her take Benadryl if she begins having these symptoms again. I informed patient that I can send this to her pharmacy however she tells me that she would just like to purchase it OTC. I also advised patient to seek out allergy testing via her PCP. I discussed strict return precautions and patient verbalized understanding. All questions answered at this time. Patient is agreeable with disposition and stable for discharge. Medications Administered Discontinued Medications Generic Name Dose Route Start Last Admin Trade Name Freq PRN Reason Stop Dose Admin Diphenhydramine HCl 25 mg 10/12/23 14:24 10/12/23 14:32 Diphenhydramine Hcl 25 Mg Capsule PO 10/12/23 14:25 25 mg ONCE ONE Administration Medical Decision Making Medical Decision Making MDM Narrative: 28 year old [place]wandan speaking female with no significant pmhx presents to the ED today for evaluation of diffuse facial swelling upon waking up this morning. Vital signs stable. She is afebrile, not hypoxic. She is nontoxic appearing and in NAD. Sitting comfortably on the bed talking to her daughter. On my examination I do not appreciate any facial edema. Face is nontender to palpation. No palpable flucuance or thickness. No edema noted to periorbital region. PERRLA. EOMs intact without pain. Lips and tongue normal. No mucosal edema. Posterioropharynx without edema/erythema, no tonsilar edema or exudates, uvula midline, controlling secretions and speaking in compelte sentences. Normal respiratory effort, lungs CTA b/l. No rash noted to body including webbed spaces, palms/soles, and mucous membranes.Clinical concern for possible minor allergic reaction to new cat vs contact dermatitis vs allergic rhinitis vs insect bite. Unlikely anaphylaxis, urticaria, angioedema, atopic dermatitis, drug eruption, tick bourne pathology, or airway compromise. Plan at this time is Benadryl administration and re-evaluation. Differential Diagnosis Differential Diagnoses: The differential diagnosis associated with the presentation includes As above. Admission/Observation Not indicated. External Record Review External record reviewed: Inpatient record Prescription Management I considered prescription management with: Other (antihistamine) Critical Care Time Critical Care Time Critical Care Time: No Discharge Plan Discharge Clinical Impression: Allergic rhinitis, Contact dermatitis Patient Disposition: Home, Self-Care Instructions: Contact Dermatitis (ED), Allergic Rhinitis (ED), General Allergic Reaction (ED) Additional Instructions: Your symptoms resolved with medication today. You likely had a minor allergic reaction. Try to identify and avoid triggers at home. You may take Benadryl at home as needed. Follow up with your primary care provider as you may need allergy testing. If your symptoms return or worsen, return to the emergency department. The case of an emergency call 911. Sonido s?ntomas se resolvieron con medicaci?n hoy. Probablemente haya tenido saritha reacci?n al?rgica radha. Trate de identificar y evitar los desencadenantes en casa. Puede sheryl Benadryl en casa seg?n sea necesario. Ana Maria un seguimiento con small proveedor de atenci?n primaria, ya que es posible que necesite pruebas de alergia. Si sonido s?ntomas regresan o empeoran, regrese al departamento de emergencias. El norma de saritha llamada de emergencia al 911. Prescriptions: No Action ibuprofen 600 mg tablet 600 mg PO Q8H PRN (Reason: pain) Qty: 20 0RF lidocaine [Lidoderm] 5 % adhesive patch,medicated 1 patch topical DAILY Qty: 15 0RF Rx Instructions: leave on most painful area for up to 12 hrs cyclobenzaprine 10 mg tablet 10 mg PO TID PRN (Reason: muscle spasm) Qty: 8 0RF cefuroxime axetil 250 mg tablet 250 mg PO BID 7 Days Qty: 14 0RF hydrocodone-homatropine [Hycodan] 5-1.5 mg/5 mL (5 mL) syrup 5 ml PO Q6H PRN (Reason: cough) Qty: 60 0RF Rx Instructions: Partial Fill upon patient request. Referrals: Physician,Unknown J [Primary Care Provider] - Interventions: ED Discharge Assessment Last Done: 10/12/23 15:41 Discharge Date/Time: 10/12/23 15:41 Print Language: Rwandan
[2023-10-12 13:24] VITALS: BP 113/70; PULSE 73; RESP 18; TEMP 36.7; O2SAT 97; BMI 21.2
[2023-10-12] MEDS: diphenhydrAMINE HCL 25 MG CAPSULE PO (14:32)
== END 2023-10-12 15:41 | disposition home or self-care (01) ==
PROVIDERS: Emergency Provider Emergency Medicine
DX: L25.9 Unspecified contact dermatitis, unspecified cause (principal); J30.9 Allergic rhinitis, unspecified
CPT/HCPCS: 99282; 99283

== ENCOUNTER 2023-10-13 10:14 | Emergency (ER) | payer OTHER, SELFPAY ==
[2023-10-13 10:17] VITALS: BP 110/48; PULSE 73; RESP 18; TEMP 36.8; O2SAT 99; BMI 22.2
[2023-10-13 11:03] LABS: MANUAL DIFF FLAG NO
[2023-10-13 11:05] LABS: Basophils Percent Auto 0.2 % (0-2); Eosinophils Absolute Auto 0.1 X10*3/uL (0.0-0.4); Eosinophils Percent Auto 1.6 % (0-4); Hematocrit 37.2 % (37.0-47.0); Hemoglobin 12.8 g/dl (12.0-16.0); Imm Gran Abs Auto 0.01 X10*3/uL (0.00-0.03); Imm Gran Pct Auto 0.2 % (0.0-0.4); Lymphocytes Absolute Auto 1.5 X10*3/uL (1.2-4.9); Lymphocytes Percent Auto 35.8 % (20-40); Mean Corpuscular HGB Conc 34.4 g/dl (31.0-35.0); Mean Corpuscular Hemoglobin 32.6 pg (27.0-33.0); Mean Corpuscular Volume 94.7 fL (80.0-98.0); Mean Platelet Volume 11.9 fL (9.4-12.3); Monocytes Absolute Auto 0.3 X10*3/uL (0.1-1.2); Monocytes Percent Auto 7.5 % (2-11); Neutrophils Absolute Auto 2.3 x10*3/uL (2.0-8.3); Neutrophils Percent Auto 54.7 % (45-73); Platelet Count 156 X10*3/uL (160-400); Red Blood Count 3.93 X10*6/uL (4.20-5.50); Red Cell Distribution Width 12.5 % (11.0-16.0); White Blood Count 4.3 X10*3/uL (4.8-10.8)
[2023-10-13] MEDS: dexAMETHasone sod phosphate 10 MG/ML VIAL IVPUSH (11:06)
[2023-10-13] MEDS: diphenhydrAMINE HCL 50 MG/ML VIAL 25 MG IVPUSH (11:06)
[2023-10-13] MEDS: Famotidine/PF 20 MG/2 ML VIAL IVPUSH (11:06)
[2023-10-13 11:36] VITALS: BP 118/68; BP 122/72; PULSE 71; PULSE 77
[2023-10-13 11:37] VITALS: BP 108/73; PULSE 79
[2023-10-13] MEDS: 0.9 % Sodium Chloride 1,000 ML 999 ML IV (11:43)
[2023-10-13 12:03] LABS: IDNOW Serial# 08D9AD1C; Strep A Nucleic Acid Negative (Negative)
[2023-10-13 12:04] LABS: Alanine Aminotransferase 11 U/L (0-31); Albumin Level 4.2 g/dL (3.5-5.0); Alkaline Phosphatase 54 U/L (39-117); Anion Gap 15 (12-20); Aspartate Amino Transferase 17 U/L (5-31); Bilirubin Direct 0.2 mg/dL (0.0-0.5); Bilirubin Total 0.7 mg/dL (0.0-1.0); Blood Urea Nitrogen 14 mg/dL (9-16); Calcium 9.5 mg/dL (8.4-10.2); Carbon Dioxide 24 mmol/L (22-29); Chloride 105 mmol/L (96-108); Creatinine Clr Calc Pharmacy 99.6; Estimated Glomerular Filt Rate > 60; Glucose Random 83 mg/dL (60-115); Potassium 4.1 mmol/L (3.3-5.1); Sodium 140 mmol/L (135-145); Total Protein 7.8 g/dL (6.5-8.0)
--- NOTE | 2023-10-13 12:26 | ED_ITS ---
HPI - General Adult General Chief complaint: Skin/Abscess/Foreign Body Stated complaint: Facial swelling/SOB Time Seen by Provider: 10/13/23 10:21 Source: patient and RN notes reviewed Mode of arrival: ambulatory Limitations: language barrier ( Family used to interpret.) History of Present Illness HPI narrative: This is a 28-year-old Malawian-speaking female, presenting to the emergency department with complaints of facial swelling, and scratchy throat since yesterday. Patient states that she woke up this morning and she felt as though her face was swollen and her throat was itchy. She was seen in the emergency department yesterday and she was given Benadryl. She has been taking Benadryl every 4 hours without any relief. She also admits that she dyed her hair yesterday morning and her symptoms started shortly after. No difficulty swallowing, fevers, chills, chest pain, shortness of breath, nausea, vomiting or diarrhea. No urinary symptoms. No other complaints or concerns at this time. MD complaint: Allergic RXN Onset (ago): day(s) Location: head and eyes Relieving factors: none Exacerbating factors: none Associated symptoms: denies other symptoms Treatments prior to arrival: none Related Data Previous Rx's Medication Instructions Recorded cyclobenzaprine 10 mg tablet 10 mg PO TID PRN muscle spasm #8 01/06/21 tabs ibuprofen 600 mg tablet 600 mg PO Q8H PRN pain #20 tabs 01/06/21 lidocaine 5 % topical patch 1 patch topical DAILY #15 ea 01/06/21 (Lidoderm) cefuroxime axetil 250 mg tablet 250 mg PO BID 7 days #14 tabs 03/09/21 hydrocodone-homatropine 5 mg-1.5 5 ml PO Q6H PRN cough #60 mL 08/25/22 mg/5 mL (5 mL) oral syrup (Hycodan) loratadine 10 mg tablet (Claritin) 10 mg PO DAILY PRN allergic 10/13/23 symptoms #30 tabs prednisone 20 mg tablet 40 mg (2 x 20 mg) PO DAILY 5 days 10/13/23 #10 tabs Allergies Allergy/AdvReac Type Severity Reaction Status Date / Time No Known Allergies Allergy Verified 10/13/23 10:17 [No Known Allergies*] Review of Systems 2 Review of Systems: Yes all other systems are reviewed and are negative Constitutional: Constitutional: Reports as per [facility] Past Medical History Medical History No known health problems Social History Social History Advance Directives: No Advance Directives Information Provided: No Physical Exam ED Vital Signs: Vital Signs - 24 hr 10/13/23 10:17 10/13/23 11:36 10/13/23 11:36 Temperature 98.3 F Pulse Rate 73 71 77 Respiratory Rate 18 Blood Pressure 110/48 L 122/72 118/68 Pulse Oximetry 99 Oxygen Delivery Method Room Air 10/13/23 11:37 10/13/23 14:40 Temperature Pulse Rate 79 61 Respiratory Rate 16 Blood Pressure 108/73 102/63 Pulse Oximetry 100 Oxygen Delivery Method Room Air BMI result Body Mass Index 22.2 Const General: cooperative, comfortable and no acute distress Orientation/consciousness: patient oriented x3 Limitations: no limitations HENMT Other: Airway widely patent Mild inferior orbital edema, no fluctuance, erythema or ttp. Head: Yes normal to inspection, Yes normocephalic and Yes atraumatic Ears: hearing grossly normal bilaterally and TM's normal bilaterally General nose exam: Normal external nose present Face and sinus: Yes normal facial exam Mouth: Normal oral and palatal mucosa present, oropharynx normal and moist mucous membranes Throat: Yes posterior oropharynx normal Eyes General: appearance normal, both eyes and all related structures Eyelids: Yes eyelids normal Conjunctivae: conjunctivae normal Sclerae: sclerae normal Pupils: Equal, round and reactive pupils present EOM: EOMs intact bilaterally Neck Neck: Yes normal visual inspection, Yes full ROM and Yes no lymphadenopathy Lymphatic: no lymphadenopathy noted Chest Chest palpation & inspection: normal inspection of the chest Resp Effort & Inspection: normal respiratory effort and able to speak in complete sentences Auscultation: clear to auscultation bilaterally, no crackles, no rales, no rhonchi and no wheezes Cardio Rate: regular rate Rhythm: regular rhythm Heart sounds: S1 normal heart sound present and S2 normal heart sound present GI Inspection: Yes normal to inspection Skin General skin exam: no rashes or lesions noted Trauma: no lacerations or abrasions Wounds: no wounds Neuro General: patient oriented x3 and moves all extremities Cranial nerves: Yes Equal, round and reactive pupils present Extrem General: Yes normal to inspection Right upper extremity: normal to inspection Left upper extremity: normal to inspection Right lower extremity: normal to inspection Left lower extremity: normal to inspection Course Reevaluation(s) Reevaluation #1: patient re-evaluated, facial swelling improved, patient symptoms also improving. Awaiting urinalysis. Patient has no leukocytosis, stable H&H, chemistry within normal limits. Time: 12:26 Reevaluation #2: UA normal. Sxs have improved. Will d/c on prednisone, benadryl. Given return precautions. She understands and agrees with plan. Stable for d/c. Medications Administered Discontinued Medications Generic Name Dose Route Start Last Admin Trade Name Freq PRN Reason Stop Dose Admin Dexamethasone Sodium Phosphate 10 mg 10/13/23 10:57 10/13/23 11:06 Dexamethasone Sod Phosphate 10 Mg/Ml Vial IVPUSH 10/13/23 10:58 10 mg ONCE ONE Administration Diphenhydramine HCl 25 mg 10/13/23 10:57 10/13/23 11:06 Diphenhydramine Hcl 50 Mg/Ml Vial IVPUSH 10/13/23 10:58 25 mg ONCE ONE Administration Famotidine 20 mg 10/13/23 10:57 10/13/23 11:06 Famotidine/Pf 20 Mg/2 Ml Vial IVPUSH 10/13/23 10:58 20 mg ONCE ONE Administration Sodium Chloride 1,000 mls @ 999 mls/hr 10/13/23 11:39 10/13/23 12:34 Ns IV 10/13/23 12:39 Infused .Q1H1M ONE Infusion Medical Decision Making Medical Decision Making [facility] Narrative: 28 y/o F presenting to the ER with complaints of facial swelling. On arrival, pt A&Ox3, with stable VS. Airway is widely patent, lungs CTAB. Pt with mild swelling infraorbitally, no erythema, warmth or induration. Pt just got a new cat and did dye her hair just prior to her symptoms starting. Was seen at [facility] yesterday, given benadryl which she has been taking without relief. No SOB or difficulty swallowing. Plan: Labs, UA, IV decadron, beandryl, pepcid Differential Diagnosis Differential Diagnoses: The differential diagnosis associated with the presentation includes allergic rxn, anaphlyaxis, angioedema - unlikely, contact dermatitis Admission/Observation Consideration of admission/observation: Escalation of care including admission/observation considered Patient would have been admitted to the hospital had her work up had any findings where hospital admission was appropriate and her clinical presentation warranted hospital admission. Lab Data MDM Lab Attestation statement: I reviewed the patient's lab results. No leukocytosis, stable H&H, chemistrl WNL 10/13/23 10:59 10/13/23 11:32 Labs: Lab Results 10/13/23 10/13/23 10/13/23 Range/Units 10:59 11:32 13:59 WBC 4.3 L (4.8-10.8) X10*3/uL RBC 3.93 L (4.20-5.50) X10*6/uL Hgb 12.8 (12.0-16.0) g/dl Hct 37.2 (37.0-47.0) % MCV 94.7 (80.0-98.0) fL MCH 32.6 (27.0-33.0) pg MCHC 34.4 (31.0-35.0) g/dl RDW 12.5 (11.0-16.0) % Plt Count 156 L (160-400) X10*3/uL MPV 11.9 (9.4-12.3) fL Immature Gran % (Auto) 0.2 (0.0-0.4) % Neut % (Auto) 54.7 (45-73) % Lymph % (Auto) 35.8 (20-40) % Travis % (Auto) 7.5 (2-11) % Eos % (Auto) 1.6 (0-4) % Baso % (Auto) 0.2 (0-2) % Lymph # (Auto) 1.5 (1.2-4.9) X10*3/uL Travis # (Auto) 0.3 (0.1-1.2) X10*3/uL Eos # (Auto) 0.1 (0.0-0.4) X10*3/uL Baso # (Auto) 0.0 (0.0-0.2) X10*3/uL Abs Immat Gran (auto) 0.01 (0.00-0.03) X10*3/uL Absolute Neuts (auto) 2.3 (2.0-8.3) x10*3/uL Absolute Nucleated RBC 0.000 (0.0-0.012) X10*3/uL Nucleated RBC % (auto) 0.0 (0.0-0.2) /100WBC Sodium 140 (135-145) mmol/L Potassium 4.1 (3.3-5.1) mmol/L Chloride 105 (96-108) mmol/L Carbon Dioxide 24 (22-29) mmol/L Anion Gap 15 (12-20) BUN 14 (9-16) mg/dL Creatinine 0.84 (0.5-1.4) mg/dL Estim Creat Clear Calc 99.6 Estimated GFR > 60 Random Glucose 83 (60-115) mg/dL Calcium 9.5 (8.4-10.2) mg/dL Total Bilirubin 0.7 (0.0-1.0) mg/dL Direct Bilirubin 0.2 (0.0-0.5) mg/dL AST 17 (5-31) U/L ALT 11 (0-31) U/L Alkaline Phosphatase 54 (39-117) U/L Total Protein 7.8 (6.5-8.0) g/dL Albumin 4.2 (3.5-5.0) g/dL Urine Color Yellow Urine Appearance Clear Urine pH 7.5 (5.0-9.0) Ur Specific [place] 1.010 (1.005-1.025) Urine Protein Negative (Neg-Trace) mg/dL Urine Glucose (UA) Negative (Negative) mg/dL Urine Ketones Negative (Negative) mg/dL Urine Blood Negative (Negative) Urine Nitrite Negative (Negative) Ur Leukocyte Esterase Negative (Negative) Urine Test NEGATIVE (NEGATIVE) Influenza Type A (PCR) NEGATIVE (Negative) Influenza Type B (PCR) NEGATIVE (Negative) RSV RNA Qual (PCR) NEGATIVE (Negative) SARS-CoV-2 RNA (RT-PCR) NEGATIVE (Negative) S. pyogenes GrpA BELEN Negative (Negative) Radiology Impression Discussion of test interpretation with radiology: I have reviewed the radiologist's reading. External Record Review External record reviewed: Inpatient record, Office record, Outpatient record, Prior outpatient labs, Prior outpatient radiology, Primary care record and Outside ED record Discharge Plan Discharge Clinical Impression: Allergic reaction Patient Disposition: Home, Self-Care Instructions: General Allergic Reaction (ED) Additional Instructions: You presented to the ER due to facial swelling. It is unclear what you are allergic to, this may be due to recent cat exposure or due to the hair dye you recently used. Your labs and urine were normal. We are prescribing you prednisone - this will help with reducing inflammation over the next 5 days. Start this tomorrow. Please take Claritin as directed. This does not cause drowsiness and can also help with your symptoms. Continue taking benadryl. Please be advised that this can cause drowsiness. Do not drink alcohol or drive while taking this medication. If any new or worsening symptoms occur including but not limited to difficulty swallowing or breathing, please return for re-evaluation. Please follow-up with your primary care physician. I am also giving you a referral to an patient biller, you have to call to make an appointment. If any new or worsening symptoms occur, please return for evaluation. Se present? en urgencias debido a saritha hinchaz?n facial. No est? delvis a qu? es al?rgico; esto puede deberse a saritha exposici?n reciente a un alina o al tinte para el rosana que us? recientemente. Dinah an?lisis y orina fueron normales. Le recetaremos prednisona; esto le ayudar? a reducir la inflamaci?n becky los pr?ximos 5 d?as. Empieza esto ma?tteo. [place] Claritin seg?n las indicaciones. [place] no causa somnolencia y tambi?n puede ayudar con dinah s?ntomas. Contin?e tomando benadryl. Tenga en cuenta que esto puede provocar somnolencia. No haroon alcohol ni conduzca mientras est? tomando alyssa medicamento. Si se presenta alg?n s?ntoma nuevo o que empeora, incluidos, entre otros, dificultad para tragar o respirar, regrese para saritha nueva evaluaci?n. Por favor jaret un seguimiento con small m?dico de atenci?n primaria. Tambi?n te estoy derivando a un alerg?logo, tienes que llamar para pedir shady. Si se presenta alg?n s?ntoma nuevo o que empeora, regrese para saritha evaluaci?n. Prescriptions: New loratadine [Claritin] 10 mg tablet 10 mg PO DAILY PRN (Reason: allergic symptoms) Qty: 30 0RF prednisone 20 mg tablet 40 mg PO DAILY 5 Days Qty: 10 0RF No Action ibuprofen 600 mg tablet 600 mg PO Q8H PRN (Reason: pain) Qty: 20 0RF lidocaine [Lidoderm] 5 % adhesive patch,medicated 1 patch topical DAILY Qty: 15 0RF Rx Instructions: leave on most painful area for up to 12 hrs cyclobenzaprine 10 mg tablet 10 mg PO TID PRN (Reason: muscle spasm) Qty: 8 0RF cefuroxime axetil 250 mg tablet 250 mg PO BID 7 Days Qty: 14 0RF hydrocodone-homatropine [Hycodan] 5-1.5 mg/5 mL (5 mL) syrup 5 ml PO Q6H PRN (Reason: cough) Qty: 60 0RF Rx Instructions: Partial Fill upon patient request. Referrals: Mitali Arreola MD [Physician] - Stand Alone Forms: Work/School Release Interventions: ED Discharge Assessment Last Done: 10/13/23 14:41 Discharge Date/Time: 10/13/23 14:41 Print Language: Malawian
[2023-10-13 14:12] LABS: Appearance Urine Clear; Color Urine Yellow; Glucose Urine UA Negative (Negative); Leukocyte Esterase Urine Negative (Negative); Nitrite Urine Negative (Negative); PH 7.5 (5.0-9.0); Urine Blood Negative (Negative); Urine Ketones Negative (Negative); Urine Protein Negative (Neg-Trace)
[2023-10-13 14:14] LABS: UPreg QC Valid YES; Urine Pregnancy NEGATIVE (NEGATIVE)
[2023-10-13 14:37] LABS: Influenza A PCR NEGATIVE (Negative); Influenza B PCR NEGATIVE (Negative); Resp Syncy Virus RNA Qual PCR NEGATIVE (Negative); SARS COV2 PCR INHOUSE NEGATIVE (Negative)
[2023-10-13 14:40] VITALS: BP 102/63; PULSE 61; RESP 16; O2SAT 100
== END 2023-10-13 14:41 | disposition home or self-care (01) ==
PROVIDERS: Physician Assistant Medical; Emergency Provider Emergency Medicine
DX: L50.0 Allergic urticaria (principal); R06.02 Shortness of breath; H05.223 Edema of bilateral orbit; R22.0 Localized swelling, mass and lump, head; Z20.822 Contact with and (suspected) exposure to COVID-19; Z20.828 Contact with and (suspected) exposure to other viral communicable diseases; Z79.899 Other long term (current) drug therapy
CPT/HCPCS: 0241U; 80048; 80076; 81003; 81025; 85025; 87651; 96361; 96374; 96375; 96376; 99284; J1100; J1200